=== PATIENT | male | born 1960 | race Caucasian/White ===

== ENCOUNTER 2017-11-23 10:48 | Inpatient (IN) | payer MEDICARE, MEDICAID ==
[~2017-11-23] VITALS: Ht 172.7 cm; Wt 61.7 kg
[~2017-11-23 10:48] MED LIST: FERR-89 PO; LEVO75 PO; RISP2 PO
[2017-11-23 11:12] VITALS: BP 121/67
[2017-11-23] MEDS: OLANZapine 7.5 MG TABLET PO SCH (12:56)
[2017-11-23] MEDS ORDERED: PROMETHAZINE HCL 25 MG TABLET PO PRN (13:30)
[2017-11-23] MEDS ORDERED: HydrOXYzine PAMOATE 50 MG CAPSULE PO PRN (13:30)
[2017-11-23] MEDS ORDERED: TUBERCULIN, PURIFIED PROTEIN DERIVATIVE 5 TU/0.1 ML SYG ID ONE (13:30)
[2017-11-23] MEDS ORDERED: ACETAMINOPHEN 325 MG TABLET PO PRN (13:30)
[2017-11-23] MEDS ORDERED: MAGNESIUM HYDROXIDE SUSPENSION 30 ML UDCUP PO PRN (13:30)
[2017-11-23] MEDS ORDERED: LOPERAMIDE HCL 2 MG CAPSULE PO PRN (13:30)
[2017-11-23] MEDS ORDERED: GuaiFENesin/D-METHORPHAN [SUGAR-FREE] 200-20MG/10 ML SYRUP UDCUP PO PRN (13:30)
[2017-11-23] MEDS: LORazepam 2 MG TABLET PO PRN (13:51)
[2017-11-23 14:35] VITALS: BP 107/72
[2017-11-23 16:06] VITALS: BP 116/62
[2017-11-23] MEDS: THIAMINE HCL 100 MG TABLET PO SCH (16:28)
[2017-11-23] MEDS: FERROUS SULFATE 325 MG EC TABLET PO SCH ×2 (16:28→20:55)
[2017-11-24] MEDS: LEVOTHYROXINE SODIUM 75 MCG TABLET PO SCH (06:06)
[2017-11-24] MEDS: FERROUS SULFATE 325 MG EC TABLET PO SCH ×4 (06:06→20:50)
[2017-11-24 06:42] VITALS: BP 121/69
[2017-11-24 08:36] VITALS: BP 111/82
[2017-11-24 08:37] LABS: BASOPHILS % (AUTO) 0.4 % (0.0-2.0); EOSINOPHILS % (AUTO) 0.9 % (1.0-6.0); HEMATOCRIT 41.7 % (41-53); HEMOGLOBIN 14.7 g/dL (13.5-17.5); LYMPHOCYTES # (AUTO) 1.6 K/uL (1.0-4.8); LYMPHOCYTES % (AUTO) 18.9 % (22.0-44.0); MEAN CORPUSCULAR HEMOGLOBIN 32.1 pg (26.0-34.0); MEAN CORPUSCULAR HGB CONC 35.2 G/dL (31.0-37.0); MEAN CORPUSCULAR VOLUME 91 fL (80-100); MONOCYTES # (AUTO) 0.6 K/uL (0.1-1.0); MONOCYTES % (AUTO) 6.8 % (2.0-9.0); NEUTROPHILS # (AUTO) 6.2 K/uL (1.8-7.7); PLATELET COUNT (AUTO) 294 K/uL (150-450); RED BLOOD CELL COUNT(AUTO) 4.57 MIL/uL (4.50-5.90); RED CELL DISTRIBUTION WIDTH 13.9 % (11.5-14.5)
[2017-11-24 09:20] LABS: ALANINE AMINOTRANSFERASE 27 U/L (12-78); ALBUMIN 3.3 g/dL (3.4-5.0); ALKALINE PHOSPHATASE 73 U/L (46-116); ANION GAP 6 mmol/L (8-16); ASPARTATE AMINOTRANSFERASE 16 U/L (15-37); BILIRUBIN,TOTAL 0.4 mg/dL (0.1-1.0); CALCIUM, TOTAL 8.8 mg/dL (8.8-10.5); CARBON DIOXIDE 31 mmol/L (22-29); CHLORIDE 103 mmol/L (98-107); CHOL/HDL RATIO 2.5 (4.2-7.3); CHOLESTEROL 200 mg/dL (131-200); CREATININE 0.86 mg/dL (0.60-1.30); FREE T4 (FREE THYROXINE) 0.71 ng/dL (0.76-1.46); GLOMERULAR FILTR. RATE CALC > 60 mL/min (>60); GLUCOSE,RANDOM 104 mg/dL (70-110); HDL CHOLESTEROL 80 mg/dL (40-60); LDL CHOL (CALC.) 102 mg/dL (0-130); POTASSIUM 4.3 mmol/L (3.5-5.1); SODIUM SERUM 140 mmol/L (136-145); THYROID STIMULATING HORMONE 24.85 uIU/mL (0.36-3.74); TOTAL PROTEIN, SERUM 6.2 g/dL (6.4-8.2); TRIGLYCERIDES 89 mg/dL (15-150); UREA NITROGEN, BLOOD 11 mg/dL (7-18)
[2017-11-24] MEDS: FOLIC ACID 1 MG TABLET PO SCH (10:39)
[2017-11-24] MEDS: THIAMINE HCL 100 MG TABLET PO SCH ×2 (10:39→16:59)
[2017-11-24] MEDS: MULTIVITAMINS WITH MINERALS, THERAPEUTIC TABLET PO SCH (10:39)
[2017-11-24] MEDS: OLANZapine 7.5 MG TABLET PO SCH (10:42)
[2017-11-25 01:48] VITALS: BP 135/78
[2017-11-25] MEDS: ZOLPIDEM TARTRATE 10 MG TABLET PO PRN (02:52)
[2017-11-25] MEDS: OLANZapine 5 MG RAPDIS TABLET PO PRN (02:52)
[2017-11-25] MEDS: LEVOTHYROXINE SODIUM 75 MCG TABLET PO SCH (06:45)
[2017-11-25] MEDS: FERROUS SULFATE 325 MG EC TABLET PO SCH ×4 (06:47→20:06)
[2017-11-25] MEDS: OLANZapine 10 MG TABLET PO SCH (08:06)
[2017-11-25] MEDS: LORazepam 2 MG TABLET PO PRN (08:06)
[2017-11-25] MEDS: FOLIC ACID 1 MG TABLET PO SCH (08:06)
[2017-11-25] MEDS: MULTIVITAMINS WITH MINERALS, THERAPEUTIC TABLET PO SCH (08:06)
[2017-11-25] MEDS: THIAMINE HCL 100 MG TABLET PO SCH ×2 (08:06→17:01)
[2017-11-25] MEDS: BACITRACIN 28.4 GM OINTMENT TP SCH (11:36)
[2017-11-25 12:21] VITALS: BP 128/83
[2017-11-25] MEDS: CEPHALEXIN MONOHYDRATE 500 MG CAPSULE PO SCH ×3 (12:38→20:06)
[2017-11-25 16:09] VITALS: BP 106/62
[2017-11-25] MEDS: DIVALPROEX SODIUM 500 MG ER TABLET PO SCH (20:07)
[2017-11-26 00:57] VITALS: BP 117/61
[2017-11-26] MEDS: LEVOTHYROXINE SODIUM 75 MCG TABLET PO SCH (06:23)
[2017-11-26] MEDS: FERROUS SULFATE 325 MG EC TABLET PO SCH ×4 (06:23→20:47)
[2017-11-26 08:43] VITALS: BP 131/74
[2017-11-26] MEDS: MULTIVITAMINS WITH MINERALS, THERAPEUTIC TABLET PO SCH (09:01)
[2017-11-26] MEDS: FOLIC ACID 1 MG TABLET PO SCH (09:01)
[2017-11-26] MEDS: CEPHALEXIN MONOHYDRATE 500 MG CAPSULE PO SCH ×4 (09:01→20:47)
[2017-11-26] MEDS: LORazepam 2 MG TABLET PO PRN (09:02)
[2017-11-26] MEDS: BACITRACIN 28.4 GM OINTMENT TP SCH (09:02)
[2017-11-26] MEDS: OLANZapine 10 MG TABLET PO SCH (09:02)
[2017-11-26] MEDS: THIAMINE HCL 100 MG TABLET PO SCH ×2 (09:02→16:40)
[2017-11-26] MEDS ORDERED: DIVA500T52 PO (13:11)
[2017-11-26] MEDS ORDERED: OLAN10TA20 PO (13:11)
[2017-11-26] MEDS: DIVALPROEX SODIUM 500 MG ER TABLET PO SCH (20:47)
[2017-11-26] MEDS: ZOLPIDEM TARTRATE 10 MG TABLET PO PRN (22:24)
[2017-11-27 02:23] VITALS: BP 117/75
[2017-11-27] MEDS ORDERED: BACI1OIN6 TP (03:50)
[2017-11-27] MEDS ORDERED: CEPH500 PO ×2 (03:50→09:11)
[2017-11-27] MEDS: LEVOTHYROXINE SODIUM 75 MCG TABLET PO SCH (06:09)
[2017-11-27] MEDS: FERROUS SULFATE 325 MG EC TABLET PO SCH ×4 (06:42→21:02)
[2017-11-27] MEDS: CEPHALEXIN MONOHYDRATE 500 MG CAPSULE PO SCH ×4 (08:25→21:02)
[2017-11-27] MEDS: FOLIC ACID 1 MG TABLET PO SCH (08:25)
[2017-11-27] MEDS: MULTIVITAMINS WITH MINERALS, THERAPEUTIC TABLET PO SCH (08:25)
[2017-11-27] MEDS: OLANZapine 10 MG TABLET PO SCH (08:25)
[2017-11-27] MEDS: THIAMINE HCL 100 MG TABLET PO SCH ×2 (08:25→16:37)
[2017-11-27] MEDS: BACITRACIN 28.4 GM OINTMENT TP SCH (08:26)
[2017-11-27 08:45] VITALS: BP 103/60
[2017-11-27] MEDS: DIVALPROEX SODIUM 500 MG ER TABLET PO SCH (21:00)
[2017-11-27] MEDS: OLANZapine 5 MG RAPDIS TABLET PO PRN (21:02)
[2017-11-28] MEDS: LEVOTHYROXINE SODIUM 75 MCG TABLET PO SCH (06:43)
[2017-11-28] MEDS: FERROUS SULFATE 325 MG EC TABLET PO SCH ×4 (06:43→20:18)
[2017-11-28] MEDS: CEPHALEXIN MONOHYDRATE 500 MG CAPSULE PO SCH ×4 (08:18→20:18)
[2017-11-28] MEDS: OLANZapine 10 MG TABLET PO SCH (08:18)
[2017-11-28] MEDS: MULTIVITAMINS WITH MINERALS, THERAPEUTIC TABLET PO SCH (08:18)
[2017-11-28] MEDS: THIAMINE HCL 100 MG TABLET PO SCH ×2 (08:18→16:57)
[2017-11-28] MEDS: FOLIC ACID 1 MG TABLET PO SCH (08:18)
[2017-11-28] MEDS: LORazepam 2 MG TABLET PO PRN (08:25)
[2017-11-28] MEDS: BACITRACIN 28.4 GM OINTMENT TP SCH (09:07)
[2017-11-28 16:00] VITALS: BP 124/66
[2017-11-28] MEDS: DIVALPROEX SODIUM 500 MG ER TABLET PO SCH (20:18)
[2017-11-29] MEDS: FERROUS SULFATE 325 MG EC TABLET PO SCH ×4 (06:47→20:34)
[2017-11-29] MEDS: LEVOTHYROXINE SODIUM 75 MCG TABLET PO SCH (06:47)
[2017-11-29 08:06] VITALS: BP 135/80
[2017-11-29] MEDS: MULTIVITAMINS WITH MINERALS, THERAPEUTIC TABLET PO SCH (08:38)
[2017-11-29] MEDS: THIAMINE HCL 100 MG TABLET PO SCH ×2 (08:39→16:32)
[2017-11-29] MEDS: CEPHALEXIN MONOHYDRATE 500 MG CAPSULE PO SCH ×4 (08:39→20:34)
[2017-11-29] MEDS: OLANZapine 10 MG TABLET PO SCH (08:39)
[2017-11-29] MEDS: FOLIC ACID 1 MG TABLET PO SCH (08:39)
[2017-11-29] MEDS: BACITRACIN 28.4 GM OINTMENT TP SCH (08:40)
[2017-11-29] MEDS: LORazepam 2 MG TABLET PO PRN (11:20)
[2017-11-29] MEDS: OLOPATADINE HCL 0.1% 5 ML OPHTHALMIC SOLUTION OU SCH (16:32)
[2017-11-29] MEDS: DIVALPROEX SODIUM 500 MG ER TABLET PO SCH (20:34)
[2017-11-30 00:50] VITALS: BP 128/77
[2017-11-30] MEDS: LEVOTHYROXINE SODIUM 75 MCG TABLET PO SCH (06:41)
[2017-11-30] MEDS: FERROUS SULFATE 325 MG EC TABLET PO SCH ×4 (06:41→20:39)
[2017-11-30] MEDS: MULTIVITAMINS WITH MINERALS, THERAPEUTIC TABLET PO SCH (08:48)
[2017-11-30] MEDS: FOLIC ACID 1 MG TABLET PO SCH (08:48)
[2017-11-30] MEDS: OLANZapine 10 MG TABLET PO SCH (08:48)
[2017-11-30] MEDS: OLOPATADINE HCL 0.1% 5 ML OPHTHALMIC SOLUTION OU SCH ×2 (08:48→16:47)
[2017-11-30] MEDS: THIAMINE HCL 100 MG TABLET PO SCH ×2 (08:48→16:47)
[2017-11-30] MEDS: CEPHALEXIN MONOHYDRATE 500 MG CAPSULE PO SCH ×2 (08:48→12:35)
[2017-11-30] MEDS: BACITRACIN 28.4 GM OINTMENT TP SCH (08:49)
[2017-11-30] MEDS: LORazepam 2 MG TABLET PO PRN (10:55)
[2017-11-30 16:25] VITALS: BP 116/77
[2017-11-30] MEDS: DIVALPROEX SODIUM 500 MG ER TABLET PO SCH (20:39)
[2017-12-01] MEDS: FERROUS SULFATE 325 MG EC TABLET PO SCH ×4 (06:19→20:34)
[2017-12-01] MEDS: LEVOTHYROXINE SODIUM 75 MCG TABLET PO SCH (06:19)
[2017-12-01] MEDS: FOLIC ACID 1 MG TABLET PO SCH (08:16)
[2017-12-01] MEDS: OLANZapine 10 MG TABLET PO SCH (08:16)
[2017-12-01] MEDS: THIAMINE HCL 100 MG TABLET PO SCH ×2 (08:16→17:05)
[2017-12-01] MEDS: MULTIVITAMINS WITH MINERALS, THERAPEUTIC TABLET PO SCH (08:17)
[2017-12-01] MEDS: BACITRACIN 28.4 GM OINTMENT TP SCH (08:17)
[2017-12-01] MEDS: OLOPATADINE HCL 0.1% 5 ML OPHTHALMIC SOLUTION OU SCH ×2 (08:18→17:05)
[2017-12-01] MEDS: LORazepam 2 MG TABLET PO PRN (08:25)
[2017-12-01] MEDS: DIVALPROEX SODIUM 500 MG ER TABLET PO SCH (20:34)
[2017-12-02] MEDS: FERROUS SULFATE 325 MG EC TABLET PO SCH ×4 (06:52→20:38)
[2017-12-02] MEDS: LEVOTHYROXINE SODIUM 75 MCG TABLET PO SCH (06:52)
[2017-12-02] MEDS: THIAMINE HCL 100 MG TABLET PO SCH ×2 (08:16→16:35)
[2017-12-02] MEDS: OLANZapine 10 MG TABLET PO SCH (08:16)
[2017-12-02] MEDS: FOLIC ACID 1 MG TABLET PO SCH (08:16)
[2017-12-02] MEDS: OLOPATADINE HCL 0.1% 5 ML OPHTHALMIC SOLUTION OU SCH ×2 (08:16→16:35)
[2017-12-02] MEDS: MULTIVITAMINS WITH MINERALS, THERAPEUTIC TABLET PO SCH (08:16)
[2017-12-02] MEDS: LORazepam 2 MG TABLET PO PRN (08:17)
[2017-12-02] MEDS: BACITRACIN 28.4 GM OINTMENT TP SCH (08:17)
[2017-12-02] MEDS: DIVALPROEX SODIUM 500 MG ER TABLET PO SCH (20:38)
[2017-12-03] MEDS: LEVOTHYROXINE SODIUM 75 MCG TABLET PO SCH (06:31)
[2017-12-03] MEDS: FERROUS SULFATE 325 MG EC TABLET PO SCH ×4 (06:32→21:00)
[2017-12-03] MEDS: MULTIVITAMINS WITH MINERALS, THERAPEUTIC TABLET PO SCH (10:21)
[2017-12-03] MEDS: OLANZapine 10 MG TABLET PO SCH (10:21)
[2017-12-03] MEDS: THIAMINE HCL 100 MG TABLET PO SCH (10:21)
[2017-12-03] MEDS: FOLIC ACID 1 MG TABLET PO SCH (10:21)
[2017-12-03] MEDS: OLOPATADINE HCL 0.1% 5 ML OPHTHALMIC SOLUTION OU SCH ×2 (10:22→16:40)
[2017-12-03] MEDS: LORazepam 2 MG TABLET PO PRN (10:27)
[2017-12-03] MEDS: BACITRACIN 28.4 GM OINTMENT TP SCH (10:48)
[2017-12-03] MEDS: DIVALPROEX SODIUM 500 MG ER TABLET PO SCH (21:00)
[2017-12-04] MEDS: LEVOTHYROXINE SODIUM 75 MCG TABLET PO SCH (06:50)
[2017-12-04] MEDS: FERROUS SULFATE 325 MG EC TABLET PO SCH ×4 (06:50→20:42)
[2017-12-04] MEDS: OLOPATADINE HCL 0.1% 5 ML OPHTHALMIC SOLUTION OU SCH ×2 (09:15→16:35)
[2017-12-04] MEDS: MULTIVITAMINS WITH MINERALS, THERAPEUTIC TABLET PO SCH (09:15)
[2017-12-04] MEDS: OLANZapine 10 MG TABLET PO SCH (09:15)
[2017-12-04] MEDS: LORazepam 2 MG TABLET PO PRN (09:15)
[2017-12-04] MEDS: BACITRACIN 28.4 GM OINTMENT TP SCH (09:15)
[2017-12-04 16:16] VITALS: BP 131/76
[2017-12-04] MEDS: DIVALPROEX SODIUM 500 MG ER TABLET PO SCH (20:42)
[2017-12-05 01:27] VITALS: BP 109/70
[2017-12-05] MEDS: LEVOTHYROXINE SODIUM 75 MCG TABLET PO SCH (06:43)
[2017-12-05] MEDS: FERROUS SULFATE 325 MG EC TABLET PO SCH ×4 (06:43→20:34)
[2017-12-05] MEDS: MULTIVITAMINS WITH MINERALS, THERAPEUTIC TABLET PO SCH (08:04)
[2017-12-05] MEDS: OLANZapine 10 MG TABLET PO SCH (08:06)
[2017-12-05] MEDS: OLOPATADINE HCL 0.1% 5 ML OPHTHALMIC SOLUTION OU SCH ×2 (08:06→16:39)
[2017-12-05] MEDS: BACITRACIN 28.4 GM OINTMENT TP SCH (08:06)
[2017-12-05 08:07] VITALS: BP 122/84
[2017-12-05 09:19] LABS: FREE T4 (FREE THYROXINE) 0.74 ng/dL (0.76-1.46); THYROID STIMULATING HORMONE 18.11 uIU/mL (0.36-3.74)
[2017-12-05 16:04] VITALS: BP 107/70
[2017-12-05] MEDS: DIVALPROEX SODIUM 500 MG ER TABLET PO SCH (20:34)
[2017-12-06 00:08] VITALS: BP 120/81
[2017-12-06] MEDS: FERROUS SULFATE 325 MG EC TABLET PO SCH ×4 (06:43→20:23)
[2017-12-06] MEDS: LEVOTHYROXINE SODIUM 75 MCG TABLET PO SCH (06:43)
[2017-12-06 08:24] VITALS: BP 133/96
[2017-12-06] MEDS: MULTIVITAMINS WITH MINERALS, THERAPEUTIC TABLET PO SCH (08:39)
[2017-12-06] MEDS: OLANZapine 10 MG TABLET PO SCH (08:39)
[2017-12-06] MEDS: BACITRACIN 28.4 GM OINTMENT TP SCH (08:40)
[2017-12-06] MEDS: OLOPATADINE HCL 0.1% 5 ML OPHTHALMIC SOLUTION OU SCH ×2 (08:40→16:10)
[2017-12-06 16:10] VITALS: BP 103/60
[2017-12-06] MEDS: DIVALPROEX SODIUM 500 MG ER TABLET PO SCH (20:23)
[2017-12-07 00:08] VITALS: BP 110/68
[2017-12-07] MEDS: LEVOTHYROXINE SODIUM 75 MCG TABLET PO SCH (06:53)
[2017-12-07] MEDS: FERROUS SULFATE 325 MG EC TABLET PO SCH ×4 (06:53→20:32)
[2017-12-07 08:32] VITALS: BP 108/66
[2017-12-07] MEDS: OLANZapine 10 MG TABLET PO SCH (08:35)
[2017-12-07] MEDS: MULTIVITAMINS WITH MINERALS, THERAPEUTIC TABLET PO SCH (08:35)
[2017-12-07] MEDS: BACITRACIN 28.4 GM OINTMENT TP SCH (08:35)
[2017-12-07] MEDS: OLOPATADINE HCL 0.1% 5 ML OPHTHALMIC SOLUTION OU SCH ×2 (08:35→16:36)
[2017-12-07 16:04] VITALS: BP 110/62
[2017-12-07] MEDS: DIVALPROEX SODIUM 500 MG ER TABLET PO SCH (20:33)
[2017-12-08 05:05] VITALS: BP 128/70
[2017-12-08] MEDS: FERROUS SULFATE 325 MG EC TABLET PO SCH ×4 (06:29→20:32)
[2017-12-08] MEDS: LEVOTHYROXINE SODIUM 75 MCG TABLET PO SCH (06:29)
[2017-12-08 08:16] VITALS: BP 125/62
[2017-12-08] MEDS: MULTIVITAMINS WITH MINERALS, THERAPEUTIC TABLET PO SCH (08:34)
[2017-12-08] MEDS: OLOPATADINE HCL 0.1% 5 ML OPHTHALMIC SOLUTION OU SCH ×2 (08:34→16:43)
[2017-12-08] MEDS: OLANZapine 10 MG TABLET PO SCH (08:34)
[2017-12-08 16:00] VITALS: BP 122/73
[2017-12-08] MEDS: DIVALPROEX SODIUM 500 MG ER TABLET PO SCH (21:00)
[2017-12-09 05:39] VITALS: BP 120/81
[2017-12-09] MEDS: FERROUS SULFATE 325 MG EC TABLET PO SCH ×4 (06:41→20:36)
[2017-12-09] MEDS: LEVOTHYROXINE SODIUM 100 MCG TABLET PO SCH (06:41)
[2017-12-09] MEDS: OLOPATADINE HCL 0.1% 5 ML OPHTHALMIC SOLUTION OU SCH ×2 (08:20→16:41)
[2017-12-09] MEDS: OLANZapine 10 MG TABLET PO SCH (08:20)
[2017-12-09] MEDS: MULTIVITAMINS WITH MINERALS, THERAPEUTIC TABLET PO SCH (08:20)
[2017-12-09 09:06] VITALS: BP 141/53
[2017-12-09 16:52] VITALS: BP 129/69
[2017-12-09] MEDS: DIVALPROEX SODIUM 500 MG ER TABLET PO SCH (20:36)
[2017-12-10 00:50] VITALS: BP 114/74
[2017-12-10] MEDS: FERROUS SULFATE 325 MG EC TABLET PO SCH ×4 (06:38→20:29)
[2017-12-10] MEDS: LEVOTHYROXINE SODIUM 100 MCG TABLET PO SCH (06:38)
[2017-12-10 08:00] VITALS: BP 125/73
[2017-12-10] MEDS: MULTIVITAMINS WITH MINERALS, THERAPEUTIC TABLET PO SCH (08:10)
[2017-12-10] MEDS: OLANZapine 10 MG TABLET PO SCH (08:11)
[2017-12-10] MEDS: OLOPATADINE HCL 0.1% 5 ML OPHTHALMIC SOLUTION OU SCH ×2 (08:11→16:37)
[2017-12-10] MEDS ORDERED: OLAN10TA20 PO (15:46)
[2017-12-10] MEDS ORDERED: DIVA500T52 PO (15:46)
[2017-12-10 16:13] VITALS: BP 127/63
[2017-12-10] MEDS: DIVALPROEX SODIUM 500 MG ER TABLET PO SCH (20:30)
[2017-12-11] MEDS: LEVOTHYROXINE SODIUM 100 MCG TABLET PO SCH (06:16)
[2017-12-11] MEDS: FERROUS SULFATE 325 MG EC TABLET PO SCH ×4 (06:16→20:44)
[2017-12-11 06:30] VITALS: BP 127/75
[2017-12-11] MEDS: OLANZapine 10 MG TABLET PO SCH (08:07)
[2017-12-11] MEDS: OLOPATADINE HCL 0.1% 5 ML OPHTHALMIC SOLUTION OU SCH ×2 (08:07→17:00)
[2017-12-11] MEDS: MULTIVITAMINS WITH MINERALS, THERAPEUTIC TABLET PO SCH (08:07)
[2017-12-11] MEDS ORDERED: LEVO100 PO (08:16)
[2017-12-11 08:25] VITALS: BP 125/68
[2017-12-11] MEDS ORDERED: LORazepam 2 MG/ML VIAL ONE (13:48)
[2017-12-11] MEDS ORDERED: HALOPERIDOL LACTATE 5 MG/ML VIAL ONE (13:48)
[2017-12-11] MEDS ORDERED: DiphenhydrAMINE HCL 50 MG/ML VIAL ONE (13:48)
[2017-12-11] MEDS ORDERED: HALOPERIDOL LACTATE 5 MG/ML VIAL IM ONE (14:00)
[2017-12-11] MEDS ORDERED: DiphenhydrAMINE HCL 50 MG/ML VIAL IM ONE (14:00)
[2017-12-11] MEDS ORDERED: LORazepam 2 MG/ML VIAL IM ONE (14:00)
[2017-12-11] MEDS: DIVALPROEX SODIUM 500 MG ER TABLET PO SCH (20:44)
[2017-12-12] MEDS: LEVOTHYROXINE SODIUM 100 MCG TABLET PO SCH (06:28)
[2017-12-12] MEDS: FERROUS SULFATE 325 MG EC TABLET PO SCH ×4 (06:28→21:00)
[2017-12-12] MEDS ORDERED: ZOLPIDEM TARTRATE 10 MG TABLET PO PRN (07:30)
[2017-12-12] MEDS: LORazepam 2 MG TABLET PO PRN (08:11)
[2017-12-12] MEDS: OLANZapine 10 MG TABLET PO SCH (08:11)
[2017-12-12] MEDS: OLOPATADINE HCL 0.1% 5 ML OPHTHALMIC SOLUTION OU SCH ×2 (08:11→16:20)
[2017-12-12] MEDS: MULTIVITAMINS WITH MINERALS, THERAPEUTIC TABLET PO SCH (08:11)
[2017-12-12 08:35] VITALS: BP 119/79
[2017-12-12 16:09] VITALS: BP 117/77
[2017-12-12] MEDS: DIVALPROEX SODIUM 500 MG ER TABLET PO SCH (21:00)
[2017-12-13 03:00] VITALS: BP 135/86
[2017-12-13] MEDS: LEVOTHYROXINE SODIUM 100 MCG TABLET PO SCH (06:50)
[2017-12-13] MEDS: FERROUS SULFATE 325 MG EC TABLET PO SCH ×4 (06:51→20:29)
[2017-12-13 08:30] VITALS: BP 140/65
[2017-12-13] MEDS: OLANZapine 10 MG TABLET PO SCH (08:55)
[2017-12-13] MEDS: LORazepam 2 MG TABLET PO PRN (08:55)
[2017-12-13] MEDS: MULTIVITAMINS WITH MINERALS, THERAPEUTIC TABLET PO SCH (08:55)
[2017-12-13] MEDS: OLOPATADINE HCL 0.1% 5 ML OPHTHALMIC SOLUTION OU SCH ×2 (08:56→16:44)
[2017-12-13 16:07] VITALS: BP 118/62
[2017-12-13] MEDS: DIVALPROEX SODIUM 500 MG ER TABLET PO SCH (20:29)
[2017-12-14] MEDS: FERROUS SULFATE 325 MG EC TABLET PO SCH ×2 (06:36→12:26)
[2017-12-14] MEDS: LEVOTHYROXINE SODIUM 100 MCG TABLET PO SCH (06:36)
[2017-12-14 08:10] VITALS: BP 119/74
[2017-12-14] MEDS: OLANZapine 10 MG TABLET PO SCH (08:20)
[2017-12-14] MEDS: OLOPATADINE HCL 0.1% 5 ML OPHTHALMIC SOLUTION OU SCH (08:20)
[2017-12-14] MEDS: MULTIVITAMINS WITH MINERALS, THERAPEUTIC TABLET PO SCH (08:20)
[2017-12-14 16:19] VITALS: BP 124/77
== END 2017-12-14 17:00 | disposition home or self-care (01) | DRG 885 ==
LOC: B2X 11:36
PROVIDERS: ADMIT Psychiatry & Neurology Psychiatry; ATTEND Psychiatry & Neurology Psychiatry
DX: F20.0 Paranoid schizophrenia (principal); Z59.0 Homelessness; D64.9 Anemia, unspecified; E03.9 Hypothyroidism, unspecified; F17.210 Nicotine dependence, cigarettes, uncomplicated; Z65.3 Problems related to other legal circumstances; Z91.14 Patient's other noncompliance with medication regimen; Z91.19 Patient's noncompliance with other medical treatment and regimen; Z79.899 Other long term (current) drug therapy
CPT/HCPCS: 84439; 84443; 87081; J1200; J1630; J2060

== ENCOUNTER 2018-04-29 16:38 | Inpatient (IN) | payer MEDICARE, MEDICAID ==
[~2018-04-29] VITALS: Ht 170.2 cm; Wt 57.2 kg
[~2018-04-29 16:38] MED LIST changes: +DIVA500T52 PO; +LEVO100 PO; -LEVO75 PO; +OLAN10TA20 PO; -RISP2 PO
[2018-04-29] MEDS ORDERED: LEVO50 PO (16:48)
[2018-04-29] MEDS ORDERED: OLAN7.5T2 PO (16:48)
[2018-04-29] MEDS ORDERED: ARIP15TA2 PO (16:48)
[2018-04-29 17:32] LABS: BASOPHILS % (AUTO) 0.8 % (0.0-2.0); HEMATOCRIT 36.3 % (41-53); HEMOGLOBIN 12.8 g/dL (13.5-17.5); LYMPHOCYTES % (AUTO) 18.9 % (22.0-44.0); MEAN CORPUSCULAR HEMOGLOBIN 31.1 pg (26.0-34.0); MEAN CORPUSCULAR HGB CONC 35.3 G/dL (31.0-37.0); MEAN CORPUSCULAR VOLUME 88 fL (80-100); MONOCYTES # (AUTO) 0.6 K/uL (0.1-1.0); MONOCYTES % (AUTO) 10.3 % (2.0-9.0); NEUTROPHILS # (AUTO) 3.8 K/uL (1.8-7.7); PLATELET COUNT (AUTO) 268 K/uL (150-450); RED BLOOD CELL COUNT(AUTO) 4.12 MIL/uL (4.50-5.90); RED CELL DISTRIBUTION WIDTH 13.9 % (11.5-14.5)
[2018-04-29 17:43] LABS: ANION GAP 8 mmol/L (8-16); CALCIUM, TOTAL 8.4 mg/dL (8.8-10.5); CARBON DIOXIDE 26 mmol/L (22-29); CHLORIDE 99 mmol/L (98-107); CREATININE 0.97 mg/dL (0.60-1.30); GLOMERULAR FILTR. RATE CALC > 60 mL/min (>60); GLUCOSE,RANDOM 187 mg/dL (70-110); POTASSIUM 3.3 mmol/L (3.5-5.1); SODIUM SERUM 133 mmol/L (136-145); UREA NITROGEN, BLOOD 17 mg/dL (7-18)
[2018-04-29 17:49] LABS: ALANINE AMINOTRANSFERASE 27 U/L (12-78); ALBUMIN 3.1 g/dL (3.4-5.0); ALKALINE PHOSPHATASE 80 U/L (46-116); ASPARTATE AMINOTRANSFERASE 28 U/L (15-37); BILIRUBIN,TOTAL 0.5 mg/dL (0.1-1.0); TOTAL PROTEIN, SERUM 6.5 g/dL (6.4-8.2)
[2018-04-29] MEDS ORDERED: HALOPERIDOL 5 MG TABLET PO PRN (18:30)
[2018-04-29] MEDS ORDERED: ZOLPIDEM TARTRATE 10 MG TABLET PO PRN (18:30)
[2018-04-29] MEDS ORDERED: LORazepam 2 MG/ML VIAL ONE (20:33)
[2018-04-29] MEDS ORDERED: DiphenhydrAMINE HCL 50 MG/ML VIAL ONE (20:33)
[2018-04-29] MEDS ORDERED: HALOPERIDOL LACTATE 5 MG/ML VIAL ONE (20:33)
[2018-04-29] MEDS ORDERED: HALOPERIDOL LACTATE 5 MG/ML VIAL IM ONE (20:45)
[2018-04-29] MEDS ORDERED: DiphenhydrAMINE HCL 50 MG/ML VIAL IM ONE (20:45)
[2018-04-29] MEDS ORDERED: LORazepam 2 MG/ML VIAL IM ONE (20:45)
[2018-04-29] MEDS ORDERED: CloNIDine HCL 0.1 MG TABLET PO PRN (23:30)
[2018-04-29] MEDS ORDERED: ACETAMINOPHEN 325 MG TABLET PO PRN (23:30)
[2018-04-29] MEDS ORDERED: MAGNESIUM HYDROXIDE SUSPENSION 30 ML UDCUP PO PRN (23:30)
[2018-04-29] MEDS ORDERED: LOPERAMIDE HCL 2 MG CAPSULE PO PRN (23:30)
[2018-04-29] MEDS ORDERED: PETROLATUM,WHITE 71 GM JELLY TP PRN (23:30)
[2018-04-29] MEDS ORDERED: IBUPROFEN 400 MG TABLET PO PRN (23:30)
[2018-04-29] MEDS ORDERED: DOCUSATE SODIUM 100 MG CAPSULE PO PRN (23:30)
[2018-04-29] MEDS ORDERED: MAG HYDROX/AL HYDROX/SIMETH ES 30 ML SUSPENSION UDCUP PO PRN (23:30)
[2018-04-29] MEDS ORDERED: ONDANSETRON HCL 4 MG TABLET PO PRN (23:30)
[2018-04-29] MEDS ORDERED: ALBUTEROL SULFATE HFA 90 MCG/PUFF 8 GM INHALER IH PRN (23:30)
[2018-04-29] MEDS ORDERED: GuaiFENesin/D-METHORPHAN [SUGAR-FREE] 200-20MG/10 ML SYRUP UDCUP PO PRN (23:30)
[2018-04-29] MEDS ORDERED: NICOTINE 14 MG/24 HOUR PATCH TD PRN (23:30)
[2018-04-30 07:57] LABS: BASOPHILS % (AUTO) 0.4 % (0.0-2.0); EOSINOPHILS % (AUTO) 1.8 % (1.0-6.0); HEMATOCRIT 37.3 % (41-53); HEMOGLOBIN 13.3 g/dL (13.5-17.5); LYMPHOCYTES % (AUTO) 14.1 % (22.0-44.0); MEAN CORPUSCULAR HEMOGLOBIN 31.6 pg (26.0-34.0); MEAN CORPUSCULAR HGB CONC 35.7 G/dL (31.0-37.0); MEAN CORPUSCULAR VOLUME 89 fL (80-100); MONOCYTES # (AUTO) 0.6 K/uL (0.1-1.0); MONOCYTES % (AUTO) 8.5 % (2.0-9.0); NEUTROPHILS # (AUTO) 5.5 K/uL (1.8-7.7); NEUTROPHILS % (AUTO) 75.2 % (40.0-70.0); PLATELET COUNT (AUTO) 241 K/uL (150-450); RED BLOOD CELL COUNT(AUTO) 4.22 MIL/uL (4.50-5.90); RED CELL DISTRIBUTION WIDTH 14.2 % (11.5-14.5)
[2018-04-30 08:00] VITALS: BP 124/84
[2018-04-30 08:38] LABS: ALANINE AMINOTRANSFERASE 27 U/L (12-78); ALBUMIN 2.9 g/dL (3.4-5.0); ALKALINE PHOSPHATASE 71 U/L (46-116); ANION GAP 5 mmol/L (8-16); ASPARTATE AMINOTRANSFERASE 30 U/L (15-37); BILIRUBIN,TOTAL 0.5 mg/dL (0.1-1.0); CALCIUM, TOTAL 8.2 mg/dL (8.8-10.5); CARBON DIOXIDE 30 mmol/L (22-29); CHLORIDE 102 mmol/L (98-107); CHOL/HDL RATIO 2.6 (4.2-7.3); CHOLESTEROL 164 mg/dL (131-200); CREATININE 0.91 mg/dL (0.60-1.30); GLOMERULAR FILTR. RATE CALC > 60 mL/min (>60); GLUCOSE,RANDOM 78 mg/dL (70-110); HDL CHOLESTEROL 64 mg/dL (40-60); LDL CHOL (CALC.) 86 mg/dL (0-130); POTASSIUM 3.6 mmol/L (3.5-5.1); SODIUM SERUM 137 mmol/L (136-145); THYROID STIMULATING HORMONE 22.34 uIU/mL (0.36-3.74); TOTAL PROTEIN, SERUM 5.8 g/dL (6.4-8.2); TRIGLYCERIDES 69 mg/dL (15-150); UREA NITROGEN, BLOOD 13 mg/dL (7-18)
[2018-04-30 08:43] LABS: HEMOGLOBIN A1C 5.4 % (4.5-6.2)
[2018-04-30] MEDS: ARIPiprazole 10 MG TABLET PO SCH (14:06)
[2018-04-30 16:06] VITALS: BP 108/74
[2018-04-30] MEDS: LORazepam 2 MG TABLET PO PRN (16:49)
[2018-04-30] MEDS: DIVALPROEX SODIUM 500 MG ER TABLET PO SCH (16:49)
[2018-05-01 03:49] VITALS: BP 99/68
[2018-05-01] MEDS: FERROUS SULFATE 325 MG EC TABLET PO SCH ×3 (06:19→16:04)
[2018-05-01] MEDS: LEVOTHYROXINE SODIUM 50 MCG TABLET PO SCH (06:19)
[2018-05-01 08:41] VITALS: BP 137/65
[2018-05-01] MEDS: ARIPiprazole 10 MG TABLET PO SCH (08:50)
[2018-05-01] MEDS: DIVALPROEX SODIUM 500 MG ER TABLET PO SCH ×2 (08:50→16:04)
[2018-05-01] MEDS: LORazepam 2 MG TABLET PO PRN (16:04)
[2018-05-01 16:25] VITALS: BP 110/69
[2018-05-02 04:39] VITALS: BP 102/71
[2018-05-02] MEDS: FERROUS SULFATE 325 MG EC TABLET PO SCH ×3 (06:05→17:09)
[2018-05-02] MEDS: LEVOTHYROXINE SODIUM 50 MCG TABLET PO SCH (06:05)
[2018-05-02 07:35] LABS: % IRON SATURATION 27.2 % (30-44)
[2018-05-02 08:00] VITALS: BP 130/68
[2018-05-02] MEDS: DIVALPROEX SODIUM 500 MG ER TABLET PO SCH ×2 (08:58→17:09)
[2018-05-02] MEDS: ARIPiprazole 10 MG TABLET PO SCH (08:58)
[2018-05-02] MEDS: LORazepam 2 MG TABLET PO PRN ×2 (12:30→17:09)
[2018-05-02 16:23] VITALS: BP 126/76
[2018-05-03 01:14] VITALS: BP 130/76
[2018-05-03] MEDS: LEVOTHYROXINE SODIUM 50 MCG TABLET PO SCH (06:10)
[2018-05-03] MEDS: FERROUS SULFATE 325 MG EC TABLET PO SCH ×3 (06:20→17:10)
[2018-05-03 08:11] VITALS: BP 111/60
[2018-05-03] MEDS: DIVALPROEX SODIUM 500 MG ER TABLET PO SCH ×2 (08:14→17:10)
[2018-05-03] MEDS: ARIPiprazole 10 MG TABLET PO SCH (08:14)
[2018-05-03 08:15] LABS: BASOPHILS % (AUTO) 0.3 % (0.0-2.0); EOSINOPHILS % (AUTO) 1.9 % (1.0-6.0); HEMATOCRIT 41.8 % (41-53); HEMOGLOBIN 14.5 g/dL (13.5-17.5); LYMPHOCYTES # (AUTO) 1.3 K/uL (1.0-4.8); LYMPHOCYTES % (AUTO) 18.6 % (22.0-44.0); MEAN CORPUSCULAR HEMOGLOBIN 31.4 pg (26.0-34.0); MEAN CORPUSCULAR HGB CONC 34.7 G/dL (31.0-37.0); MEAN CORPUSCULAR VOLUME 91 fL (80-100); MONOCYTES # (AUTO) 0.4 K/uL (0.1-1.0); MONOCYTES % (AUTO) 5.2 % (2.0-9.0); NEUTROPHILS # (AUTO) 5.1 K/uL (1.8-7.7); PLATELET COUNT (AUTO) 273 K/uL (150-450); RED BLOOD CELL COUNT(AUTO) 4.62 MIL/uL (4.50-5.90); RED CELL DISTRIBUTION WIDTH 14.1 % (11.5-14.5)
[2018-05-03 08:49] LABS: ALANINE AMINOTRANSFERASE 25 U/L (12-78); ALKALINE PHOSPHATASE 68 U/L (46-116); ANION GAP 4 mmol/L (8-16); ASPARTATE AMINOTRANSFERASE 15 U/L (15-37); BILIRUBIN,TOTAL 0.3 mg/dL (0.1-1.0); CALCIUM, TOTAL 8.6 mg/dL (8.8-10.5); CARBON DIOXIDE 32 mmol/L (22-29); CHLORIDE 99 mmol/L (98-107); GLOMERULAR FILTR. RATE CALC > 60 mL/min (>60); GLUCOSE,RANDOM 92 mg/dL (70-110); POTASSIUM 4.4 mmol/L (3.5-5.1); SODIUM SERUM 135 mmol/L (136-145); TOTAL PROTEIN, SERUM 6.9 g/dL (6.4-8.2); UREA NITROGEN, BLOOD 13 mg/dL (7-18); VALPROIC ACID 94 mcg/mL (50-100)
[2018-05-03 16:00] VITALS: BP 134/78
[2018-05-03] MEDS: LORazepam 2 MG TABLET PO PRN (17:10)
[2018-05-04 04:27] VITALS: BP 102/62
[2018-05-04] MEDS: FERROUS SULFATE 325 MG EC TABLET PO SCH ×3 (06:35→16:37)
[2018-05-04] MEDS: LEVOTHYROXINE SODIUM 50 MCG TABLET PO SCH (06:35)
[2018-05-04 08:30] VITALS: BP 97/59
[2018-05-04] MEDS ORDERED: ARIPiprazole 15 MG TABLET PO SCH (09:00)
[2018-05-04] MEDS: DIVALPROEX SODIUM 500 MG ER TABLET PO SCH ×2 (09:17→16:37)
[2018-05-04 16:00] VITALS: BP 120/76
[2018-05-04] MEDS: LORazepam 2 MG TABLET PO PRN (16:37)
[2018-05-05 03:51] VITALS: BP 126/72
[2018-05-05] MEDS: LEVOTHYROXINE SODIUM 50 MCG TABLET PO SCH (06:41)
[2018-05-05] MEDS: FERROUS SULFATE 325 MG EC TABLET PO SCH ×3 (06:41→16:45)
[2018-05-05 08:12] VITALS: BP 128/62
[2018-05-05] MEDS: DIVALPROEX SODIUM 500 MG ER TABLET PO SCH ×2 (08:24→16:45)
[2018-05-05] MEDS ORDERED: ARIPiprazole 10 MG TABLET PO SCH (09:00)
[2018-05-05] MEDS ORDERED: ARIPiprazole 10 MG TABLET PO ONE (11:00)
[2018-05-05 16:00] VITALS: BP 118/67
[2018-05-05] MEDS: LORazepam 2 MG TABLET PO PRN (16:45)
[2018-05-06 00:10] VITALS: BP 106/74
[2018-05-06] MEDS: FERROUS SULFATE 325 MG EC TABLET PO SCH ×3 (06:40→17:03)
[2018-05-06] MEDS: LEVOTHYROXINE SODIUM 50 MCG TABLET PO SCH (06:40)
[2018-05-06 08:32] VITALS: BP 107/63
[2018-05-06] MEDS ORDERED: ARIPiprazole LAUROXIL ER SUSPENSION 882 MG/3.2 ML SYRINGE IM ONE (09:00)
[2018-05-06] MEDS: DIVALPROEX SODIUM 500 MG ER TABLET PO SCH ×2 (09:01→17:03)
[2018-05-06] MEDS: ARIPiprazole 15 MG TABLET PO SCH (09:01)
[2018-05-06 16:00] VITALS: BP 112/63
[2018-05-06] MEDS ORDERED: DIVALPROEX SODIUM 500 MG ER TABLET PO SCH (17:00)
[2018-05-06] MEDS: LORazepam 2 MG TABLET PO PRN (17:03)
[2018-05-07 01:11] VITALS: BP 108/64
[2018-05-07] MEDS: FERROUS SULFATE 325 MG EC TABLET PO SCH ×3 (06:04→16:14)
[2018-05-07] MEDS: LEVOTHYROXINE SODIUM 50 MCG TABLET PO SCH (06:04)
[2018-05-07 08:04] VITALS: BP 118/64
[2018-05-07] MEDS: ARIPiprazole 15 MG TABLET PO SCH (08:43)
[2018-05-07] MEDS: DIVALPROEX SODIUM 500 MG ER TABLET PO SCH ×2 (08:44→16:14)
[2018-05-07] MEDS: LORazepam 2 MG TABLET PO PRN ×2 (08:44→16:14)
[2018-05-07 08:47] LABS: ANION GAP 5 mmol/L (8-16); CALCIUM, TOTAL 8.5 mg/dL (8.8-10.5); CARBON DIOXIDE 34 mmol/L (22-29); CHLORIDE 99 mmol/L (98-107); GLOMERULAR FILTR. RATE CALC > 60 mL/min (>60); GLUCOSE,RANDOM 79 mg/dL (70-110); POTASSIUM 4.8 mmol/L (3.5-5.1); SODIUM SERUM 138 mmol/L (136-145); UREA NITROGEN, BLOOD 16 mg/dL (7-18)
[2018-05-07 16:05] VITALS: BP 109/64
[2018-05-08 05:11] VITALS: BP 107/63
[2018-05-08] MEDS: LEVOTHYROXINE SODIUM 50 MCG TABLET PO SCH (06:32)
[2018-05-08] MEDS: FERROUS SULFATE 325 MG EC TABLET PO SCH ×3 (06:32→17:02)
[2018-05-08 08:05] VITALS: BP 119/64
[2018-05-08] MEDS: ARIPiprazole 15 MG TABLET PO SCH (08:49)
[2018-05-08] MEDS: DIVALPROEX SODIUM 500 MG ER TABLET PO SCH ×2 (08:49→16:12)
[2018-05-08 16:11] VITALS: BP 116/68
[2018-05-08] MEDS: LORazepam 2 MG TABLET PO PRN (23:41)
[2018-05-09 00:11] VITALS: BP 108/63
[2018-05-09] MEDS: LEVOTHYROXINE SODIUM 50 MCG TABLET PO SCH (06:11)
[2018-05-09] MEDS: FERROUS SULFATE 325 MG EC TABLET PO SCH ×3 (06:11→16:52)
[2018-05-09 08:00] VITALS: BP 124/75
[2018-05-09] MEDS: DIVALPROEX SODIUM 500 MG ER TABLET PO SCH ×2 (08:16→16:52)
[2018-05-09] MEDS: ARIPiprazole 15 MG TABLET PO SCH (08:16)
[2018-05-09 15:59] VITALS: BP 125/67
[2018-05-09 16:30] VITALS: BP 125/67
[2018-05-09] MEDS: LORazepam 2 MG TABLET PO PRN (16:52)
[2018-05-09] MEDS: HYPROMELLOSE 0.5% 15 ML OPHTHALMIC SOLUTION OU SCH (16:52)
[2018-05-10 00:20] VITALS: BP 118/83
[2018-05-10] MEDS: LEVOTHYROXINE SODIUM 50 MCG TABLET PO SCH (06:23)
[2018-05-10] MEDS: FERROUS SULFATE 325 MG EC TABLET PO SCH ×3 (06:23→17:01)
[2018-05-10 08:06] VITALS: BP 114/71
[2018-05-10 08:34] LABS: BASOPHILS % (AUTO) 0.4 % (0.0-2.0); EOSINOPHILS % (AUTO) 1.3 % (1.0-6.0); HEMATOCRIT 42.7 % (41-53); HEMOGLOBIN 14.7 g/dL (13.5-17.5); LYMPHOCYTES # (AUTO) 1.2 K/uL (1.0-4.8); LYMPHOCYTES % (AUTO) 16.9 % (22.0-44.0); MEAN CORPUSCULAR HEMOGLOBIN 31.6 pg (26.0-34.0); MEAN CORPUSCULAR HGB CONC 34.4 G/dL (31.0-37.0); MEAN CORPUSCULAR VOLUME 92 fL (80-100); MONOCYTES # (AUTO) 0.5 K/uL (0.1-1.0); MONOCYTES % (AUTO) 6.6 % (2.0-9.0); NEUTROPHILS # (AUTO) 5.4 K/uL (1.8-7.7); NEUTROPHILS % (AUTO) 74.8 % (40.0-70.0); PLATELET COUNT (AUTO) 220 K/uL (150-450); RED BLOOD CELL COUNT(AUTO) 4.64 MIL/uL (4.50-5.90); RED CELL DISTRIBUTION WIDTH 14.4 % (11.5-14.5)
[2018-05-10] MEDS: ARIPiprazole 15 MG TABLET PO SCH (08:52)
[2018-05-10] MEDS: DIVALPROEX SODIUM 500 MG ER TABLET PO SCH ×2 (08:52→17:01)
[2018-05-10] MEDS: HYPROMELLOSE 0.5% 15 ML OPHTHALMIC SOLUTION OU SCH ×3 (08:53→17:01)
[2018-05-10 09:31] LABS: ALANINE AMINOTRANSFERASE 20 U/L (12-78); ALBUMIN 3.1 g/dL (3.4-5.0); ALKALINE PHOSPHATASE 62 U/L (46-116); ANION GAP 4 mmol/L (8-16); ASPARTATE AMINOTRANSFERASE 11 U/L (15-37); BILIRUBIN,TOTAL 0.3 mg/dL (0.1-1.0); CALCIUM, TOTAL 9.2 mg/dL (8.8-10.5); CARBON DIOXIDE 36 mmol/L (22-29); CHLORIDE 97 mmol/L (98-107); CREATININE 0.92 mg/dL (0.60-1.30); GLOMERULAR FILTR. RATE CALC > 60 mL/min (>60); GLUCOSE,RANDOM 116 mg/dL (70-110); POTASSIUM 4.4 mmol/L (3.5-5.1); SODIUM SERUM 137 mmol/L (136-145); TOTAL PROTEIN, SERUM 7.2 g/dL (6.4-8.2); UREA NITROGEN, BLOOD 16 mg/dL (7-18)
[2018-05-10 16:00] VITALS: BP 108/68
[2018-05-11 01:39] VITALS: BP 122/75
[2018-05-11] MEDS: LEVOTHYROXINE SODIUM 50 MCG TABLET PO SCH (06:26)
[2018-05-11] MEDS: FERROUS SULFATE 325 MG EC TABLET PO SCH ×3 (06:26→16:26)
[2018-05-11 08:18] VITALS: BP 120/67
[2018-05-11] MEDS: ARIPiprazole 15 MG TABLET PO SCH (09:50)
[2018-05-11] MEDS: DIVALPROEX SODIUM 500 MG ER TABLET PO SCH ×2 (09:50→16:26)
[2018-05-11] MEDS: HYPROMELLOSE 0.5% 15 ML OPHTHALMIC SOLUTION OU SCH ×3 (09:50→16:26)
[2018-05-11 16:20] VITALS: BP 125/91
[2018-05-12 02:52] VITALS: BP 116/72
[2018-05-12] MEDS: LEVOTHYROXINE SODIUM 50 MCG TABLET PO SCH (06:59)
[2018-05-12] MEDS: FERROUS SULFATE 325 MG EC TABLET PO SCH ×3 (07:00→16:40)
[2018-05-12 08:04] VITALS: BP 123/68
[2018-05-12] MEDS: ARIPiprazole 15 MG TABLET PO SCH (08:33)
[2018-05-12] MEDS: DIVALPROEX SODIUM 500 MG ER TABLET PO SCH ×2 (08:33→16:40)
[2018-05-12] MEDS: HYPROMELLOSE 0.5% 15 ML OPHTHALMIC SOLUTION OU SCH ×3 (08:34→16:40)
[2018-05-12 16:14] VITALS: BP 126/72
[2018-05-13 01:24] VITALS: BP 121/74
[2018-05-13] MEDS ORDERED: DIVA-78 PO (06:41)
[2018-05-13] MEDS ORDERED: ARIP15TA2 PO (06:41)
[2018-05-13] MEDS: LEVOTHYROXINE SODIUM 50 MCG TABLET PO SCH (06:52)
[2018-05-13] MEDS: FERROUS SULFATE 325 MG EC TABLET PO SCH (06:52)
[2018-05-13 08:01] VITALS: BP 124/70
[2018-05-13] MEDS: DIVALPROEX SODIUM 500 MG ER TABLET PO SCH (08:28)
[2018-05-13] MEDS: ARIPiprazole 15 MG TABLET PO SCH (08:28)
[2018-05-13] MEDS: HYPROMELLOSE 0.5% 15 ML OPHTHALMIC SOLUTION OU SCH (08:29)
[2018-05-13] MEDS ORDERED: ARIP882S IM (10:14)
== END 2018-05-13 11:04 | disposition home or self-care (01) | DRG 885 ==
LOC: EMS 16:39 → B2X 20:25 → B3A 21:32
PROVIDERS: ADMIT Psychiatry & Neurology Psychiatry; ATTEND Psychiatry & Neurology Psychiatry
DX: F25.0 Schizoaffective disorder, bipolar type (principal); E87.1 Hypo-osmolality and hyponatremia; D50.9 Iron deficiency anemia, unspecified; E03.9 Hypothyroidism, unspecified; E78.00 Pure hypercholesterolemia, unspecified; E78.5 Hyperlipidemia, unspecified; E87.6 Hypokalemia; F41.9 Anxiety disorder, unspecified; R73.9 Hyperglycemia, unspecified; I10 Essential (primary) hypertension; R45.850 Homicidal ideations; Z59.0 Homelessness; Z79.899 Other long term (current) drug therapy; Z91.14 Patient's other noncompliance with medication regimen; Z91.19 Patient's noncompliance with other medical treatment and regimen; Z28.21 Immunization not carried out because of patient refusal
CPT/HCPCS: 82728; 83036; 83540; 83550; 84439; 84443; G0480; J1200; J1630; J2060

== ENCOUNTER 2019-05-19 16:43 | Inpatient (IN) | payer MEDICARE, MEDICAID ==
[~2019-05-19] VITALS: Ht 172.7 cm; Wt 63.2 kg
[~2019-05-19 16:43] MED LIST changes: +ARIP15TA2 PO; +DIVA-78 PO; -DIVA500T52 PO; -FERR-89 PO; -LEVO100 PO; +LEVO50 PO; -OLAN10TA20 PO
[2019-05-19] MEDS ORDERED: DiphenhydrAMINE HCL 50 MG/ML VIAL IM ONE (17:15)
[2019-05-19] MEDS ORDERED: HALOPERIDOL LACTATE 5 MG/ML VIAL IM ONE (17:15)
[2019-05-19] MEDS ORDERED: LORazepam 2 MG/ML VIAL IM ONE (17:15)
[2019-05-19] MEDS ORDERED: LORazepam 2 MG/ML VIAL ONE (17:16)
[2019-05-19] MEDS ORDERED: DiphenhydrAMINE HCL 50 MG/ML VIAL ONE (17:16)
[2019-05-19] MEDS ORDERED: HALOPERIDOL LACTATE 5 MG/ML VIAL ONE (17:16)
[2019-05-19 18:00] VITALS: BP 137/83
[2019-05-19] MEDS ORDERED: INFLUENZA VIRUS VACCINE QVS 2019-20 (3YR+)/PF 60 MCG/0.5 ML SYRINGE IM ONE (18:00)
[2019-05-19] MEDS ORDERED: PNEUMOCOCCAL VACCINE POLYVALENT 0.5 ML VIAL [PPSV23] IM ONE (18:00)
[2019-05-20 03:00] VITALS: BP 122/87
[2019-05-20] MEDS: LEVOTHYROXINE SODIUM 50 MCG TABLET PO SCH (06:30)
[2019-05-20] MEDS ORDERED: GuaiFENesin/D-METHORPHAN [SUGAR-FREE] 200-20MG/10 ML SYRUP UDCUP PO PRN (11:45)
[2019-05-20] MEDS ORDERED: PETROLATUM,WHITE 28 GM JELLY TP PRN (11:45)
[2019-05-20] MEDS ORDERED: CloNIDine HCL 0.1 MG TABLET PO PRN (11:45)
[2019-05-20] MEDS ORDERED: IBUPROFEN 400 MG TABLET PO PRN (11:45)
[2019-05-20] MEDS ORDERED: LOPERAMIDE HCL 2 MG CAPSULE PO PRN (11:45)
[2019-05-20] MEDS ORDERED: NICOTINE 14 MG/24 HOUR PATCH TD PRN (11:45)
[2019-05-20] MEDS ORDERED: ONDANSETRON HCL 4 MG TABLET PO PRN (11:45)
[2019-05-20] MEDS ORDERED: ALBUTEROL SULFATE HFA 90 MCG/PUFF 8 GM INHALER IH PRN (11:45)
[2019-05-20] MEDS ORDERED: MAGNESIUM HYDROXIDE SUSPENSION 30 ML UDCUP PO PRN (11:45)
[2019-05-20] MEDS ORDERED: DOCUSATE SODIUM 100 MG CAPSULE PO PRN (11:45)
[2019-05-20] MEDS: DIVALPROEX SODIUM 500 MG ER TABLET PO SCH (16:53)
[2019-05-21 01:18] VITALS: BP 137/89
[2019-05-21 02:00] VITALS: BP 132/85
[2019-05-21] MEDS: ACETAMINOPHEN 325 MG TABLET PO PRN (02:00)
[2019-05-21] MEDS ORDERED: LEVOTHYROXINE SODIUM 50 MCG TABLET PO SCH (06:30)
[2019-05-21] MEDS: LEVOTHYROXINE SODIUM 50 MCG TABLET PO SCH (06:32)
[2019-05-21 08:10] LABS: BASOPHILS % (AUTO) 0.3 % (0.0-2.0); EOSINOPHILS % (AUTO) 0.7 % (1.0-6.0); HEMATOCRIT 43.8 % (41-53); HEMOGLOBIN 14.9 g/dL (13.5-17.5); LYMPHOCYTES # (AUTO) 1.1 K/uL (1.0-4.8); LYMPHOCYTES % (AUTO) 12.5 % (22.0-44.0); MEAN CORPUSCULAR HGB CONC 34.1 G/dL (31.0-37.0); MEAN CORPUSCULAR VOLUME 94 fL (80-100); MONOCYTES # (AUTO) 0.7 K/uL (0.1-1.0); MONOCYTES % (AUTO) 8.1 % (2.0-9.0); NEUTROPHILS # (AUTO) 7.2 K/uL (1.8-7.7); NEUTROPHILS % (AUTO) 78.4 % (40.0-70.0); PLATELET COUNT (AUTO) 245 K/uL (150-450); RED BLOOD CELL COUNT(AUTO) 4.67 MIL/uL (4.50-5.90); RED CELL DISTRIBUTION WIDTH 13.6 % (11.5-14.5)
[2019-05-21 08:28] LABS: HEMOGLOBIN A1C 5.8 % (4.5-6.2)
[2019-05-21] MEDS: ARIPiprazole 15 MG TABLET PO SCH (08:31)
[2019-05-21] MEDS: DIVALPROEX SODIUM 500 MG ER TABLET PO SCH ×2 (08:31→16:59)
[2019-05-21 08:34] LABS: ALANINE AMINOTRANSFERASE 28 U/L (12-78); ALBUMIN 3.5 g/dL (3.4-5.0); ALKALINE PHOSPHATASE 74 U/L (46-116); ANION GAP 6 mmol/L (8-16); ASPARTATE AMINOTRANSFERASE 37 U/L (15-37); BILIRUBIN,TOTAL 0.2 mg/dL (0.1-1.0); CALCIUM, TOTAL 8.7 mg/dL (8.8-10.5); CARBON DIOXIDE 29 mmol/L (22-29); CHLORIDE 103 mmol/L (98-107); CHOL/HDL RATIO 2.6 (4.2-7.3); CHOLESTEROL 195 mg/dL (131-200); GLOMERULAR FILTR. RATE CALC > 60 mL/min (>60); GLUCOSE,RANDOM 84 mg/dL (70-110); HDL CHOLESTEROL 74 mg/dL (40-60); LDL CHOL (CALC.) 85 mg/dL (0-130); POTASSIUM 4.6 mmol/L (3.5-5.1); SODIUM SERUM 138 mmol/L (136-145); THYROID STIMULATING HORMONE 14.13 uIU/mL (0.36-3.74); TRIGLYCERIDES 181 mg/dL (15-150); UREA NITROGEN, BLOOD 13 mg/dL (7-18)
[2019-05-21 08:37] LABS: VALPROIC ACID < 3 mcg/mL (50-100)
[2019-05-21 16:08] VITALS: BP 141/81
[2019-05-22 00:59] VITALS: BP 134/76
[2019-05-22] MEDS: ZOLPIDEM TARTRATE 10 MG TABLET PO PRN (02:14)
[2019-05-22] MEDS: LEVOTHYROXINE SODIUM 50 MCG TABLET PO SCH (06:26)
[2019-05-22 08:13] VITALS: BP 119/78
[2019-05-22] MEDS: ARIPiprazole 15 MG TABLET PO SCH (08:13)
[2019-05-22] MEDS: DIVALPROEX SODIUM 500 MG ER TABLET PO SCH ×2 (08:14→17:02)
[2019-05-22] MEDS: LORazepam 2 MG TABLET PO PRN ×3 (08:14→17:02)
[2019-05-22 09:37] LABS: APPEARANCE,URINE CLEAR (CLEAR); BILIRUBIN,URINE NEGATIVE (NEGATIVE); GLUCOSE, URINE (UA) NEGATIVE (NEGATIVE); KETONES,URINE NEGATIVE (NEGATIVE); LEUKOCYTE ESTERASE ,URINE NEGATIVE (NEGATIVE); NITRATE,URINE NEGATIVE (NEGATIVE); OCCULT BLOOD,URINE NEGATIVE (NEGATIVE); PROTEIN,URINE NEGATIVE (NEGATIVE); UROBILINOGEN,URINE 0.2 mg/dL (<=1.0)
[2019-05-22 09:44] LABS: AMPHET/METH SCREEN,URINE NEGATIVE (NEGATIVE); BARBITURATE SCREEN, URINE NEGATIVE (NEGATIVE); BENZODIAZEPINES SCREEN,URINE NEGATIVE (NEGATIVE); CANNABINOID SCREEN,URINE NEGATIVE (NEGATIVE); COCAINE SCREEN,URINE NEGATIVE (NEGATIVE); METHADONE SCREEN, URINE NEGATIVE (NEGATIVE); OPIATE SCREEN,URINE NEGATIVE (NEGATIVE); PHENCYCLIDINE SCREEN,URINE NEGATIVE (NEGATIVE)
[2019-05-22 16:30] VITALS: BP 135/80
[2019-05-23 04:53] VITALS: BP 159/76
[2019-05-23] MEDS: LEVOTHYROXINE SODIUM 50 MCG TABLET PO SCH (06:30)
[2019-05-23 08:09] VITALS: BP 122/82
[2019-05-23] MEDS: ARIPiprazole 15 MG TABLET PO SCH (09:05)
[2019-05-23] MEDS: DIVALPROEX SODIUM 500 MG ER TABLET PO SCH ×2 (09:06→17:25)
[2019-05-23 16:09] VITALS: BP 136/80
[2019-05-24 02:16] VITALS: BP 110/69
[2019-05-24] MEDS: LEVOTHYROXINE SODIUM 50 MCG TABLET PO SCH (06:33)
[2019-05-24] MEDS: ARIPiprazole 15 MG TABLET PO SCH (09:19)
[2019-05-24] MEDS: DIVALPROEX SODIUM 500 MG ER TABLET PO SCH ×2 (09:19→16:11)
[2019-05-24] MEDS: LORazepam 2 MG TABLET PO PRN ×2 (09:20→16:11)
[2019-05-24] MEDS: HALOPERIDOL 5 MG TABLET PO PRN ×2 (09:20→16:11)
[2019-05-24 16:00] VITALS: BP 116/74
[2019-05-25 00:51] VITALS: BP 117/89
[2019-05-25] MEDS: LEVOTHYROXINE SODIUM 50 MCG TABLET PO SCH (06:05)
[2019-05-25 08:12] VITALS: BP 129/83
[2019-05-25] MEDS: ARIPiprazole 15 MG TABLET PO SCH (08:15)
[2019-05-25] MEDS: DIVALPROEX SODIUM 500 MG ER TABLET PO SCH ×2 (08:15→16:16)
[2019-05-25] MEDS: OMEGA-3/DHA/EPA/FISH OIL 1,000 MG CAPSULE PO SCH (12:43)
[2019-05-25 16:00] VITALS: BP 136/81
[2019-05-25] MEDS: HALOPERIDOL 5 MG TABLET PO PRN (16:16)
[2019-05-25] MEDS: LORazepam 2 MG TABLET PO PRN (16:16)
[2019-05-26 06:10] VITALS: BP 132/78
[2019-05-26 06:12] VITALS: BP 125/77
[2019-05-26] MEDS: LEVOTHYROXINE SODIUM 50 MCG TABLET PO SCH (06:38)
[2019-05-26] MEDS: ARIPiprazole 15 MG TABLET PO SCH (08:36)
[2019-05-26] MEDS: DIVALPROEX SODIUM 500 MG ER TABLET PO SCH ×2 (08:36→16:57)
[2019-05-26] MEDS: OMEGA-3/DHA/EPA/FISH OIL 1,000 MG CAPSULE PO SCH (08:36)
[2019-05-26 16:07] VITALS: BP 131/90
[2019-05-27 01:40] VITALS: BP 128/78
[2019-05-27] MEDS: LEVOTHYROXINE SODIUM 50 MCG TABLET PO SCH (06:23)
[2019-05-27] MEDS ORDERED: IBUPROFEN 600 MG TABLET PO PRN (07:00)
[2019-05-27 08:37] VITALS: BP 131/88
[2019-05-27] MEDS: DIVALPROEX SODIUM 500 MG ER TABLET PO SCH ×2 (08:38→16:03)
[2019-05-27] MEDS: ARIPiprazole 15 MG TABLET PO SCH (08:38)
[2019-05-27] MEDS: OMEGA-3/DHA/EPA/FISH OIL 1,000 MG CAPSULE PO SCH (08:38)
[2019-05-28] MEDS: LEVOTHYROXINE SODIUM 50 MCG TABLET PO SCH (06:30)
[2019-05-28] MEDS: OMEGA-3/DHA/EPA/FISH OIL 1,000 MG CAPSULE PO SCH (08:41)
[2019-05-28] MEDS: ARIPiprazole 15 MG TABLET PO SCH (08:41)
[2019-05-28] MEDS: DIVALPROEX SODIUM 500 MG ER TABLET PO SCH ×2 (08:41→16:05)
[2019-05-28] MEDS: LORazepam 2 MG TABLET PO PRN (16:05)
[2019-05-28] MEDS: HALOPERIDOL 5 MG TABLET PO PRN (16:05)
[2019-05-28 16:11] VITALS: BP 132/84
[2019-05-29 01:40] VITALS: BP 102/71
[2019-05-29] MEDS: LEVOTHYROXINE SODIUM 75 MCG TABLET PO SCH (06:09)
[2019-05-29 08:00] VITALS: BP 132/81
[2019-05-29] MEDS: HALOPERIDOL 5 MG TABLET PO PRN ×2 (08:03→16:04)
[2019-05-29] MEDS: LORazepam 2 MG TABLET PO PRN ×2 (08:03→16:04)
[2019-05-29] MEDS: OMEGA-3/DHA/EPA/FISH OIL 1,000 MG CAPSULE PO SCH (08:03)
[2019-05-29] MEDS: ARIPiprazole 15 MG TABLET PO SCH (08:03)
[2019-05-29] MEDS: DIVALPROEX SODIUM 500 MG ER TABLET PO SCH ×2 (08:03→16:04)
[2019-05-29 16:05] VITALS: BP 120/80
[2019-05-30 00:14] VITALS: BP 132/80
[2019-05-30] MEDS: LEVOTHYROXINE SODIUM 75 MCG TABLET PO SCH (06:29)
[2019-05-30 08:17] VITALS: BP 120/87
[2019-05-30] MEDS: ARIPiprazole 15 MG TABLET PO SCH (08:42)
[2019-05-30] MEDS: OMEGA-3/DHA/EPA/FISH OIL 1,000 MG CAPSULE PO SCH (08:43)
[2019-05-30] MEDS: DIVALPROEX SODIUM 500 MG ER TABLET PO SCH ×2 (08:43→16:08)
[2019-05-30 16:06] VITALS: BP 118/81
[2019-05-31] MEDS: LEVOTHYROXINE SODIUM 75 MCG TABLET PO SCH (06:53)
[2019-05-31 08:11] VITALS: BP 152/74
[2019-05-31] MEDS: DIVALPROEX SODIUM 500 MG ER TABLET PO SCH ×2 (09:13→16:04)
[2019-05-31] MEDS: OMEGA-3/DHA/EPA/FISH OIL 1,000 MG CAPSULE PO SCH (09:14)
[2019-05-31] MEDS: ARIPiprazole 15 MG TABLET PO SCH (09:14)
[2019-05-31 16:07] VITALS: BP 124/86
[2019-05-31] MEDS: LORazepam 2 MG TABLET PO PRN (16:09)
[2019-05-31] MEDS: ZOLPIDEM TARTRATE 10 MG TABLET PO PRN (20:36)
[2019-06-01 01:13] VITALS: BP 124/81
[2019-06-01] MEDS: LEVOTHYROXINE SODIUM 75 MCG TABLET PO SCH (06:46)
[2019-06-01] MEDS: ARIPiprazole 15 MG TABLET PO SCH (08:16)
[2019-06-01] MEDS: DIVALPROEX SODIUM 500 MG ER TABLET PO SCH ×2 (08:16→16:09)
[2019-06-01] MEDS: OMEGA-3/DHA/EPA/FISH OIL 1,000 MG CAPSULE PO SCH (08:16)
[2019-06-01 08:38] VITALS: BP 129/75
[2019-06-01 16:14] VITALS: BP 144/90
[2019-06-01] MEDS: ZOLPIDEM TARTRATE 10 MG TABLET PO PRN (22:51)
[2019-06-02 06:55] VITALS: BP 133/84
[2019-06-02] MEDS: LEVOTHYROXINE SODIUM 75 MCG TABLET PO SCH (07:04)
[2019-06-02 08:23] VITALS: BP 110/80
[2019-06-02] MEDS: ARIPiprazole 15 MG TABLET PO SCH (09:36)
[2019-06-02] MEDS: DIVALPROEX SODIUM 500 MG ER TABLET PO SCH ×2 (09:36→16:32)
[2019-06-02] MEDS: OMEGA-3/DHA/EPA/FISH OIL 1,000 MG CAPSULE PO SCH (09:36)
[2019-06-02 16:08] VITALS: BP 150/95
[2019-06-02] MEDS: HALOPERIDOL 5 MG TABLET PO PRN (16:32)
[2019-06-02] MEDS: LORazepam 2 MG TABLET PO PRN (16:32)
[2019-06-02 17:30] VITALS: BP 119/72
[2019-06-03 06:22] VITALS: BP 136/74
[2019-06-03] MEDS: LEVOTHYROXINE SODIUM 75 MCG TABLET PO SCH (06:38)
[2019-06-03] MEDS: LORazepam 2 MG TABLET PO PRN ×2 (08:38→16:20)
[2019-06-03] MEDS: DIVALPROEX SODIUM 500 MG ER TABLET PO SCH ×2 (08:38→16:20)
[2019-06-03] MEDS: ARIPiprazole 10 MG TABLET PO SCH (08:38)
[2019-06-03] MEDS: OMEGA-3/DHA/EPA/FISH OIL 1,000 MG CAPSULE PO SCH (08:38)
[2019-06-03] MEDS: HALOPERIDOL 5 MG TABLET PO PRN (16:20)
[2019-06-03 16:26] VITALS: BP 112/60
[2019-06-03] MEDS: ZOLPIDEM TARTRATE 10 MG TABLET PO PRN (20:37)
[2019-06-04 04:19] VITALS: BP 100/80
[2019-06-04] MEDS: LEVOTHYROXINE SODIUM 75 MCG TABLET PO SCH (07:08)
[2019-06-04 08:22] VITALS: BP 122/78
[2019-06-04] MEDS: MULTIVITAMINS WITH MINERALS, THERAPEUTIC TABLET PO SCH (08:48)
[2019-06-04] MEDS: DIVALPROEX SODIUM 500 MG ER TABLET PO SCH ×2 (08:48→16:48)
[2019-06-04] MEDS: OMEGA-3/DHA/EPA/FISH OIL 1,000 MG CAPSULE PO SCH (08:48)
[2019-06-04] MEDS: ARIPiprazole 10 MG TABLET PO SCH (08:48)
[2019-06-04 16:27] VITALS: BP 138/88
[2019-06-04] MEDS: ZOLPIDEM TARTRATE 10 MG TABLET PO PRN (21:11)
[2019-06-04] MEDS: ACETAMINOPHEN 325 MG TABLET PO PRN (23:39)
[2019-06-05 01:05] VITALS: BP 144/89
[2019-06-05] MEDS: LEVOTHYROXINE SODIUM 75 MCG TABLET PO SCH (06:45)
[2019-06-05 08:26] VITALS: BP 121/85
[2019-06-05] MEDS: LORazepam 2 MG TABLET PO PRN ×2 (08:44→16:32)
[2019-06-05] MEDS: ARIPiprazole 10 MG TABLET PO SCH (08:44)
[2019-06-05] MEDS: MULTIVITAMINS WITH MINERALS, THERAPEUTIC TABLET PO SCH (08:44)
[2019-06-05] MEDS: DIVALPROEX SODIUM 500 MG ER TABLET PO SCH ×2 (08:44→16:32)
[2019-06-05] MEDS: OMEGA-3/DHA/EPA/FISH OIL 1,000 MG CAPSULE PO SCH (08:44)
[2019-06-05] MEDS: MAG HYDROX/AL HYDROX/SIMETH ES 30 ML SUSPENSION UDCUP PO PRN (12:28)
[2019-06-05] MEDS: HALOPERIDOL 5 MG TABLET PO PRN (16:32)
[2019-06-05 19:01] VITALS: BP 115/80
[2019-06-06 06:08] VITALS: BP 129/83
[2019-06-06] MEDS: LEVOTHYROXINE SODIUM 75 MCG TABLET PO SCH (06:45)
[2019-06-06] MEDS: OMEGA-3/DHA/EPA/FISH OIL 1,000 MG CAPSULE PO SCH (09:24)
[2019-06-06] MEDS: DIVALPROEX SODIUM 500 MG ER TABLET PO SCH ×2 (09:24→16:24)
[2019-06-06] MEDS: MULTIVITAMINS WITH MINERALS, THERAPEUTIC TABLET PO SCH (09:24)
[2019-06-06] MEDS: ARIPiprazole 10 MG TABLET PO SCH (09:27)
[2019-06-06] MEDS: LORazepam 2 MG TABLET PO PRN (16:24)
[2019-06-06] MEDS: HALOPERIDOL 5 MG TABLET PO PRN (16:24)
[2019-06-06] MEDS: MAG HYDROX/AL HYDROX/SIMETH ES 30 ML SUSPENSION UDCUP PO PRN (18:36)
[2019-06-06] MEDS: ZOLPIDEM TARTRATE 10 MG TABLET PO PRN (21:12)
[2019-06-07 06:10] VITALS: BP 127/62
[2019-06-07] MEDS: LEVOTHYROXINE SODIUM 75 MCG TABLET PO SCH (06:59)
[2019-06-07] MEDS: ARIPiprazole 10 MG TABLET PO SCH (08:12)
[2019-06-07] MEDS: MULTIVITAMINS WITH MINERALS, THERAPEUTIC TABLET PO SCH (08:12)
[2019-06-07] MEDS: OMEGA-3/DHA/EPA/FISH OIL 1,000 MG CAPSULE PO SCH (08:12)
[2019-06-07] MEDS: DIVALPROEX SODIUM 500 MG ER TABLET PO SCH ×2 (08:12→16:24)
[2019-06-07 08:22] VITALS: BP 115/86
[2019-06-07] MEDS: LORazepam 2 MG TABLET PO PRN (16:24)
[2019-06-07] MEDS: HALOPERIDOL 5 MG TABLET PO PRN (16:24)
[2019-06-07 16:32] VITALS: BP 157/72
[2019-06-08 00:46] VITALS: BP 124/81
[2019-06-08] MEDS: LEVOTHYROXINE SODIUM 75 MCG TABLET PO SCH (06:22)
[2019-06-08] MEDS: OMEGA-3/DHA/EPA/FISH OIL 1,000 MG CAPSULE PO SCH (09:16)
[2019-06-08] MEDS: DIVALPROEX SODIUM 500 MG ER TABLET PO SCH ×2 (09:16→16:12)
[2019-06-08] MEDS: ARIPiprazole 10 MG TABLET PO SCH (09:16)
[2019-06-08] MEDS: MULTIVITAMINS WITH MINERALS, THERAPEUTIC TABLET PO SCH (09:17)
[2019-06-08 16:07] VITALS: BP 126/86
[2019-06-08] MEDS: HALOPERIDOL 5 MG TABLET PO PRN (16:12)
[2019-06-08] MEDS: LORazepam 2 MG TABLET PO PRN (16:12)
[2019-06-09 06:36] VITALS: BP 110/80
[2019-06-09] MEDS: LEVOTHYROXINE SODIUM 75 MCG TABLET PO SCH (06:47)
[2019-06-09] MEDS: DIVALPROEX SODIUM 500 MG ER TABLET PO SCH ×2 (08:25→16:05)
[2019-06-09] MEDS: OMEGA-3/DHA/EPA/FISH OIL 1,000 MG CAPSULE PO SCH (08:25)
[2019-06-09] MEDS: ARIPiprazole 10 MG TABLET PO SCH (08:25)
[2019-06-09] MEDS: MULTIVITAMINS WITH MINERALS, THERAPEUTIC TABLET PO SCH (08:25)
[2019-06-09 16:16] VITALS: BP 139/93
[2019-06-09] MEDS: ZOLPIDEM TARTRATE 10 MG TABLET PO PRN (21:12)
[2019-06-10 00:51] VITALS: BP 122/79
[2019-06-10] MEDS: LEVOTHYROXINE SODIUM 75 MCG TABLET PO SCH (06:55)
[2019-06-10 08:39] VITALS: BP 138/74
[2019-06-10] MEDS: ARIPiprazole 10 MG TABLET PO SCH (08:53)
[2019-06-10] MEDS: MULTIVITAMINS WITH MINERALS, THERAPEUTIC TABLET PO SCH (08:53)
[2019-06-10] MEDS: DIVALPROEX SODIUM 500 MG ER TABLET PO SCH ×2 (08:53→16:25)
[2019-06-10] MEDS: OMEGA-3/DHA/EPA/FISH OIL 1,000 MG CAPSULE PO SCH (08:55)
[2019-06-10 16:22] VITALS: BP 101/74
[2019-06-10] MEDS: ACETAMINOPHEN 325 MG TABLET PO PRN (17:47)
[2019-06-10] MEDS: ZOLPIDEM TARTRATE 10 MG TABLET PO PRN (20:34)
[2019-06-11] MEDS: LEVOTHYROXINE SODIUM 75 MCG TABLET PO SCH (06:40)
[2019-06-11] MEDS: DIVALPROEX SODIUM 500 MG ER TABLET PO SCH ×2 (08:14→16:30)
[2019-06-11] MEDS: OMEGA-3/DHA/EPA/FISH OIL 1,000 MG CAPSULE PO SCH (08:16)
[2019-06-11] MEDS: ARIPiprazole 10 MG TABLET PO SCH (08:16)
[2019-06-11] MEDS: MULTIVITAMINS WITH MINERALS, THERAPEUTIC TABLET PO SCH (08:16)
[2019-06-11] MEDS: ZOLPIDEM TARTRATE 10 MG TABLET PO PRN (20:10)
[2019-06-12 05:06] VITALS: BP 131/87
[2019-06-12] MEDS: LORazepam 2 MG TABLET PO PRN ×2 (06:02→16:24)
[2019-06-12] MEDS: HALOPERIDOL 5 MG TABLET PO PRN ×2 (06:02→16:24)
[2019-06-12] MEDS: LEVOTHYROXINE SODIUM 75 MCG TABLET PO SCH (06:14)
[2019-06-12] MEDS: OMEGA-3/DHA/EPA/FISH OIL 1,000 MG CAPSULE PO SCH (08:24)
[2019-06-12] MEDS: MULTIVITAMINS WITH MINERALS, THERAPEUTIC TABLET PO SCH (08:24)
[2019-06-12] MEDS: ARIPiprazole 10 MG TABLET PO SCH (08:25)
[2019-06-12] MEDS: DIVALPROEX SODIUM 500 MG ER TABLET PO SCH ×2 (08:25→16:24)
[2019-06-12] MEDS: ZOLPIDEM TARTRATE 10 MG TABLET PO PRN (21:36)
[2019-06-13 00:41] VITALS: BP 105/60
[2019-06-13] MEDS: LEVOTHYROXINE SODIUM 75 MCG TABLET PO SCH (06:32)
[2019-06-13 08:37] VITALS: BP 127/78
[2019-06-13] MEDS: OMEGA-3/DHA/EPA/FISH OIL 1,000 MG CAPSULE PO SCH (09:30)
[2019-06-13] MEDS: ARIPiprazole 10 MG TABLET PO SCH (09:30)
[2019-06-13] MEDS: MULTIVITAMINS WITH MINERALS, THERAPEUTIC TABLET PO SCH (09:30)
[2019-06-13] MEDS: DIVALPROEX SODIUM 500 MG ER TABLET PO SCH ×2 (09:31→17:06)
[2019-06-14] MEDS: LEVOTHYROXINE SODIUM 75 MCG TABLET PO SCH (07:08)
[2019-06-14 08:22] VITALS: BP 127/83
[2019-06-14] MEDS: ARIPiprazole 10 MG TABLET PO SCH (09:59)
[2019-06-14] MEDS: DIVALPROEX SODIUM 500 MG ER TABLET PO SCH ×2 (10:00→16:27)
[2019-06-14] MEDS: MULTIVITAMINS WITH MINERALS, THERAPEUTIC TABLET PO SCH (10:00)
[2019-06-14] MEDS: OMEGA-3/DHA/EPA/FISH OIL 1,000 MG CAPSULE PO SCH (10:01)
[2019-06-15 01:05] VITALS: BP 130/86
[2019-06-15] MEDS: LEVOTHYROXINE SODIUM 75 MCG TABLET PO SCH (06:16)
[2019-06-15] MEDS: OMEGA-3/DHA/EPA/FISH OIL 1,000 MG CAPSULE PO SCH (08:06)
[2019-06-15] MEDS: LORazepam 2 MG TABLET PO PRN ×2 (08:06→16:01)
[2019-06-15] MEDS: ARIPiprazole 10 MG TABLET PO SCH (08:06)
[2019-06-15] MEDS: DIVALPROEX SODIUM 500 MG ER TABLET PO SCH ×2 (08:06→16:01)
[2019-06-15] MEDS: MULTIVITAMINS WITH MINERALS, THERAPEUTIC TABLET PO SCH (08:06)
[2019-06-15] MEDS: HALOPERIDOL 5 MG TABLET PO PRN (16:01)
[2019-06-15] MEDS: DEXTRAN 70 0.1%/HYPROMELL 0.3% 0.9 ML OPHTHALMIC SOLUTION [PF] OU PRN ×2 (16:17→23:29)
[2019-06-15 16:18] VITALS: BP 114/61
[2019-06-16 06:14] VITALS: BP 122/77
[2019-06-16] MEDS: LEVOTHYROXINE SODIUM 75 MCG TABLET PO SCH (06:41)
[2019-06-16] MEDS: DIVALPROEX SODIUM 500 MG ER TABLET PO SCH (08:39)
[2019-06-16] MEDS: ARIPiprazole 10 MG TABLET PO SCH (08:39)
[2019-06-16] MEDS: MULTIVITAMINS WITH MINERALS, THERAPEUTIC TABLET PO SCH (08:39)
[2019-06-16] MEDS: OMEGA-3/DHA/EPA/FISH OIL 1,000 MG CAPSULE PO SCH (08:40)
[2019-06-16] MEDS: DEXTRAN 70 0.1%/HYPROMELL 0.3% 0.9 ML OPHTHALMIC SOLUTION [PF] OU PRN (09:14)
[2019-06-16] MEDS ORDERED: OMEG-135 PO (12:00)
[2019-06-16] MEDS ORDERED: ARIP20TA PO (12:00)
[2019-06-16] MEDS ORDERED: LEVO75 PO (12:00)
[2019-06-16] MEDS ORDERED: DIVA500T69 PO (12:00)
== END 2019-06-16 13:49 | disposition home or self-care (01) | DRG 885 ==
LOC: B3A 17:16 → UNDOADMIN 17:16 → B3A 06-10 15:24
PROVIDERS: ADMIT Psychiatry & Neurology Psychiatry; ATTEND Psychiatry & Neurology Psychiatry
DX: F25.0 Schizoaffective disorder, bipolar type (principal); E46 Unspecified protein-calorie malnutrition; I10 Essential (primary) hypertension; E78.00 Pure hypercholesterolemia, unspecified; E03.9 Hypothyroidism, unspecified; E78.5 Hyperlipidemia, unspecified; K21.9 Gastro-esophageal reflux disease without esophagitis; D64.9 Anemia, unspecified; F41.9 Anxiety disorder, unspecified; Z68.21 Body mass index [BMI] 21.0-21.9, adult
CPT/HCPCS: 80307; 83036; 84439; 84443; 90686; 90732; J1200; J1630; J2060

== ENCOUNTER 2020-03-15 20:29 | Inpatient (IN) | payer MEDICARE, MEDICAID ==
[~2020-03-15] VITALS: Ht 170.2 cm; Wt 64.4 kg
[~2020-03-15 20:29] MED LIST changes: -ARIP15TA2 PO; +ARIP20TA PO; -DIVA-78 PO; +DIVA500T69 PO; -LEVO50 PO; +LEVO75 PO; +OMEG-135 PO
[2020-03-15] MEDS ORDERED: LORazepam 2 MG/ML VIAL IM ONE (22:45)
[2020-03-15] MEDS ORDERED: HALOPERIDOL LACTATE 5 MG/ML VIAL IM ONE (22:45)
[2020-03-15] MEDS ORDERED: DiphenhydrAMINE HCL 50 MG/ML VIAL IM ONE (22:45)
[2020-03-16] MEDS ORDERED: ZOLPIDEM TARTRATE 10 MG TABLET PO PRN (00:45)
[2020-03-16] MEDS ORDERED: HALOPERIDOL 5 MG TABLET PO PRN (00:45)
[2020-03-16 03:14] VITALS: BP 133/88
[2020-03-16] MEDS ORDERED: MAGNESIUM HYDROXIDE SUSPENSION 30 ML UDCUP PO PRN (08:00)
[2020-03-16] MEDS ORDERED: MAG HYDROX/AL HYDROX/SIMETH ES 30 ML SUSPENSION UDCUP PO PRN (08:00)
[2020-03-16] MEDS ORDERED: NICOTINE 14 MG/24 HOUR PATCH TD PRN (08:00)
[2020-03-16] MEDS ORDERED: PETROLATUM,WHITE 28 GM JELLY TP PRN (08:00)
[2020-03-16] MEDS ORDERED: LOPERAMIDE HCL 2 MG CAPSULE PO PRN (08:00)
[2020-03-16] MEDS ORDERED: CloNIDine HCL 0.1 MG TABLET PO PRN (08:00)
[2020-03-16] MEDS ORDERED: GuaiFENesin/D-METHORPHAN [SUGAR-FREE] 200-20MG/10 ML SYRUP UDCUP PO PRN (08:00)
[2020-03-16] MEDS ORDERED: ONDANSETRON HCL 4 MG TABLET PO PRN (08:00)
[2020-03-16] MEDS ORDERED: DOCUSATE SODIUM 100 MG CAPSULE PO PRN (08:00)
[2020-03-16 08:20] LABS: BASOPHILS % (AUTO) 0.4 % (0.0-2.0); EOSINOPHILS % (AUTO) 0.4 % (1.0-6.0); HEMATOCRIT 25.3 % (41-53); HEMOGLOBIN 7.8 g/dL (13.5-17.5); LYMPHOCYTES # (AUTO) 1.2 K/uL (1.0-4.8); LYMPHOCYTES % (AUTO) 10.6 % (22.0-44.0); MEAN CORPUSCULAR HEMOGLOBIN 24.3 pg (26.0-34.0); MEAN CORPUSCULAR VOLUME 78 fL (80-100); MONOCYTES # (AUTO) 0.7 K/uL (0.1-1.0); MONOCYTES % (AUTO) 5.6 % (2.0-9.0); NEUTROPHILS # (AUTO) 9.7 K/uL (1.8-7.7); PLATELET COUNT (AUTO) 570 K/uL (150-450); RED BLOOD CELL COUNT(AUTO) 3.23 MIL/uL (4.50-5.90); RED CELL DISTRIBUTION WIDTH 16.1 % (11.5-14.5)
[2020-03-16] MEDS: OMEGA-3/DHA/EPA/FISH OIL 1,000 MG CAPSULE PO SCH (08:58)
[2020-03-16 09:32] VITALS: BP 137/89
[2020-03-16 09:42] LABS: ALANINE AMINOTRANSFERASE 30 U/L (12-78); ALBUMIN 2.5 g/dL (3.4-5.0); ALKALINE PHOSPHATASE 93 U/L (46-116); ANION GAP 3 mmol/L (8-16); ASPARTATE AMINOTRANSFERASE 34 U/L (15-37); BILIRUBIN,TOTAL 0.3 mg/dL (0.1-1.0); CALCIUM, TOTAL 8.3 mg/dL (8.8-10.5); CARBON DIOXIDE 31 mmol/L (22-29); CHLORIDE 97 mmol/L (98-107); CREATININE 0.87 mg/dL (0.60-1.30); GLOMERULAR FILTR. RATE CALC > 60 mL/min (>60); GLUCOSE,RANDOM 112 mg/dL (70-110); SODIUM SERUM 131 mmol/L (136-145); UREA NITROGEN, BLOOD 17 mg/dL (7-18)
[2020-03-16] MEDS: ALBUTEROL SULFATE HFA 90 MCG/PUFF 8 GM INHALER IH PRN (10:16)
[2020-03-16] MEDS: FERROUS SULFATE 325 MG EC TABLET PO SCH ×2 (13:08→16:53)
[2020-03-16 16:47] VITALS: BP 111/78
[2020-03-16] MEDS: DIVALPROEX SODIUM 500 MG DR TABLET PO SCH (16:53)
[2020-03-16] MEDS: IBUPROFEN 400 MG TABLET PO PRN (23:42)
[2020-03-17 00:45] VITALS: BP 111/77
[2020-03-17] MEDS: FERROUS SULFATE 325 MG EC TABLET PO SCH ×3 (06:09→16:04)
[2020-03-17] MEDS: LEVOTHYROXINE SODIUM 75 MCG TABLET PO SCH (06:10)
[2020-03-17 08:05] VITALS: BP 133/76
[2020-03-17] MEDS: ARIPiprazole 10 MG TABLET PO SCH (08:18)
[2020-03-17] MEDS: DIVALPROEX SODIUM 500 MG DR TABLET PO SCH ×2 (08:18→16:05)
[2020-03-17] MEDS: OMEGA-3/DHA/EPA/FISH OIL 1,000 MG CAPSULE PO SCH (08:22)
[2020-03-17 09:19] LABS: CHOL/HDL RATIO 2.5 (4.2-7.3)
[2020-03-17] MEDS: ACETAMINOPHEN 325 MG TABLET PO PRN (10:30)
[2020-03-17] MEDS: LORazepam 2 MG TABLET PO PRN ×2 (10:30→16:05)
[2020-03-17 17:07] VITALS: BP 136/80
[2020-03-18 05:14] VITALS: BP 128/75
[2020-03-18] MEDS: LEVOTHYROXINE SODIUM 75 MCG TABLET PO SCH (06:04)
[2020-03-18] MEDS: FERROUS SULFATE 325 MG EC TABLET PO SCH ×3 (06:04→16:29)
[2020-03-18 08:11] VITALS: BP 123/75
[2020-03-18] MEDS: ARIPiprazole 10 MG TABLET PO SCH (08:19)
[2020-03-18] MEDS: DIVALPROEX SODIUM 500 MG DR TABLET PO SCH ×2 (08:19→16:29)
[2020-03-18] MEDS: LORazepam 2 MG TABLET PO PRN ×2 (08:20→16:29)
[2020-03-18 08:38] LABS: BASOPHILS % (AUTO) 0.6 % (0.0-2.0); EOSINOPHILS % (AUTO) 0.5 % (1.0-6.0); HEMATOCRIT 25.8 % (41-53); HEMOGLOBIN 8.2 g/dL (13.5-17.5); LYMPHOCYTES # (AUTO) 1.3 K/uL (1.0-4.8); LYMPHOCYTES % (AUTO) 17.4 % (22.0-44.0); MEAN CORPUSCULAR HGB CONC 31.8 G/dL (31.0-37.0); MEAN CORPUSCULAR VOLUME 79 fL (80-100); MONOCYTES # (AUTO) 0.4 K/uL (0.1-1.0); MONOCYTES % (AUTO) 5.3 % (2.0-9.0); NEUTROPHILS # (AUTO) 5.5 K/uL (1.8-7.7); NEUTROPHILS % (AUTO) 76.2 % (40.0-70.0); PLATELET COUNT (AUTO) 550 K/uL (150-450); RED BLOOD CELL COUNT(AUTO) 3.29 MIL/uL (4.50-5.90); RED CELL DISTRIBUTION WIDTH 16.7 % (11.5-14.5)
[2020-03-18] MEDS: OMEGA-3/DHA/EPA/FISH OIL 1,000 MG CAPSULE PO SCH (09:22)
[2020-03-18 16:03] VITALS: BP 138/81
[2020-03-19 02:12] VITALS: BP 133/74
[2020-03-19] MEDS: IBUPROFEN 400 MG TABLET PO PRN ×2 (02:15→16:07)
[2020-03-19] MEDS: LEVOTHYROXINE SODIUM 75 MCG TABLET PO SCH (06:02)
[2020-03-19] MEDS: FERROUS SULFATE 325 MG EC TABLET PO SCH ×3 (06:02→16:06)
[2020-03-19 08:12] VITALS: BP 134/74
[2020-03-19] MEDS: ARIPiprazole 10 MG TABLET PO SCH (08:18)
[2020-03-19] MEDS: DIVALPROEX SODIUM 500 MG DR TABLET PO SCH ×2 (08:18→16:07)
[2020-03-19] MEDS: OMEGA-3/DHA/EPA/FISH OIL 1,000 MG CAPSULE PO SCH (08:21)
[2020-03-19 08:27] LABS: ANION GAP 3 mmol/L (8-16); CALCIUM, TOTAL 8.4 mg/dL (8.8-10.5); CARBON DIOXIDE 32 mmol/L (22-29); CHLORIDE 90 mmol/L (98-107); CREATININE 0.84 mg/dL (0.60-1.30); GLOMERULAR FILTR. RATE CALC > 60 mL/min (>60); GLUCOSE,RANDOM 128 mg/dL (70-110); POTASSIUM 4.8 mmol/L (3.5-5.1); SODIUM SERUM 125 mmol/L (136-145); UREA NITROGEN, BLOOD 19 mg/dL (7-18)
[2020-03-19] MEDS ORDERED: SODIUM CHLORIDE 1 GM TABLET PO SCH (09:00)
[2020-03-19] MEDS: SODIUM CHLORIDE 1 GM TABLET PO SCH ×3 (09:45→16:07)
[2020-03-19 16:04] VITALS: BP 131/76
[2020-03-19] MEDS: LORazepam 2 MG TABLET PO PRN ×2 (16:07→20:47)
[2020-03-20] MEDS: LEVOTHYROXINE SODIUM 75 MCG TABLET PO SCH (06:15)
[2020-03-20] MEDS: FERROUS SULFATE 325 MG EC TABLET PO SCH ×3 (06:16→16:15)
[2020-03-20 08:25] VITALS: BP 138/88
[2020-03-20 08:39] LABS: ANION GAP 3 mmol/L (8-16); CALCIUM, TOTAL 8.3 mg/dL (8.8-10.5); CARBON DIOXIDE 33 mmol/L (22-29); CHLORIDE 96 mmol/L (98-107); CREATININE 0.66 mg/dL (0.60-1.30); GLOMERULAR FILTR. RATE CALC > 60 mL/min (>60); GLUCOSE,RANDOM 90 mg/dL (70-110); POTASSIUM 5.1 mmol/L (3.5-5.1); SODIUM SERUM 132 mmol/L (136-145); UREA NITROGEN, BLOOD 14 mg/dL (7-18)
[2020-03-20] MEDS: SODIUM CHLORIDE 1 GM TABLET PO SCH ×3 (08:54→16:15)
[2020-03-20] MEDS: ARIPiprazole 10 MG TABLET PO SCH (08:54)
[2020-03-20] MEDS: OMEGA-3/DHA/EPA/FISH OIL 1,000 MG CAPSULE PO SCH (08:54)
[2020-03-20] MEDS: DIVALPROEX SODIUM 500 MG DR TABLET PO SCH ×2 (08:54→16:15)
[2020-03-20 16:06] VITALS: BP 130/82
[2020-03-20] MEDS: AZITHROMYCIN 500 MG TABLET PO SCH (16:15)
[2020-03-20] MEDS: ALBUTEROL SULFATE HFA 90 MCG/PUFF 8 GM INHALER IH PRN (16:16)
[2020-03-20] MEDS: LORazepam 2 MG TABLET PO PRN ×2 (16:16→20:23)
[2020-03-21] VITALS: BP 140/77
[2020-03-21] MEDS: ACETAMINOPHEN 325 MG TABLET PO PRN (04:53)
[2020-03-21] MEDS: FERROUS SULFATE 325 MG EC TABLET PO SCH ×3 (06:10→16:27)
[2020-03-21] MEDS: LEVOTHYROXINE SODIUM 75 MCG TABLET PO SCH (06:10)
[2020-03-21 08:22] VITALS: BP 140/90
[2020-03-21 08:31] LABS: ANION GAP 2 mmol/L (8-16); CALCIUM, TOTAL 8.7 mg/dL (8.8-10.5); CARBON DIOXIDE 33 mmol/L (22-29); CHLORIDE 97 mmol/L (98-107); GLOMERULAR FILTR. RATE CALC > 60 mL/min (>60); GLUCOSE,RANDOM 94 mg/dL (70-110); POTASSIUM 4.5 mmol/L (3.5-5.1); SODIUM SERUM 132 mmol/L (136-145); UREA NITROGEN, BLOOD 14 mg/dL (7-18)
[2020-03-21] MEDS: AZITHROMYCIN 500 MG TABLET PO SCH (08:51)
[2020-03-21] MEDS: DIVALPROEX SODIUM 500 MG DR TABLET PO SCH ×2 (08:51→16:27)
[2020-03-21] MEDS: ARIPiprazole 10 MG TABLET PO SCH (08:51)
[2020-03-21] MEDS: SODIUM CHLORIDE 1 GM TABLET PO SCH ×3 (08:51→16:27)
[2020-03-21] MEDS: OMEGA-3/DHA/EPA/FISH OIL 1,000 MG CAPSULE PO SCH (08:51)
[2020-03-21] MEDS ORDERED: NACL1 PO (15:24)
[2020-03-21] MEDS ORDERED: AZIT-104 PO (15:24)
== END 2020-03-21 17:10 | disposition home or self-care (01) | DRG 885 ==
LOC: EMS 20:29 → B3A 03-16 00:37
PROVIDERS: ADMIT Psychiatry & Neurology Child & Adolescent Psychiatry; ATTEND Psychiatry & Neurology Child & Adolescent Psychiatry
DX: F25.0 Schizoaffective disorder, bipolar type (principal); E87.1 Hypo-osmolality and hyponatremia; D72.829 Elevated white blood cell count, unspecified; E03.9 Hypothyroidism, unspecified; D64.9 Anemia, unspecified; F41.9 Anxiety disorder, unspecified; E78.00 Pure hypercholesterolemia, unspecified; E78.5 Hyperlipidemia, unspecified; Z59.0 Homelessness; Z79.899 Other long term (current) drug therapy; Z72.89 Other problems related to lifestyle; Z71.41 Alcohol abuse counseling and surveillance of alcoholic
CPT/HCPCS: G0480; J1200; J1630; J2060; J3535

== ENCOUNTER 2020-10-27 09:19 | Emergency (ER) | payer MEDICARE, MEDICAID ==
[~2020-10-27] VITALS: Ht 165.1 cm; Wt 63.6 kg
[~2020-10-27 09:19] MED LIST changes: +AZIT-104 PO; +NACL1 PO; -OMEG-135 PO
[2020-10-27] MEDS ORDERED: PERTUSS(ACELL),DIPH,TET VAC/PF 0.5 ML SYRINGE IM. ONE (10:15)
[2020-10-27 10:20] VITALS: BP 155/84
== END 2020-10-27 10:21 | disposition home or self-care (01) ==
LOC: EMS 09:19
DX: S90.412A Abrasion, left great toe, initial encounter (principal); W18.09XA Striking against other object with subsequent fall, initial encounter; Y93.89 Activity, other specified; Y92.89 Other specified places as the place of occurrence of the external cause; Y99.8 Other external cause status
CPT/HCPCS: 90471; 90715; 99283